=== PATIENT | female | born 2000 | race Caucasian/White ===

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

== ENCOUNTER 2020-02-20 18:49 | Emergency (ER) | payer BC ==
--- OUTSIDE RECORDS SUMMARY | 2020-02-20 18:51 | XMS REPORT ---
:2000 Author Organization [facility] t Address [address] [place] [address] Care Team Providers Name Role Phone LUZ LESLIE M.D. Unavailable Unavailable BARI ANGULO M.D. Unavailable Unavailable Payers Payer Name Policy Type Policy Number Effective Date Expiration D ate Problems Condition Condition Condition Status Onset Resolution Last Treatin g Comments Name Details Category Date Date Treatment Clinician Date Headache Headache Problem Active 2015-10 00:00: 00 History of History of Problem Resolve Heart Heart d disease disease Acute pain Acute pain Problem Active of right of right knee knee Patellar Patellar Problem Active tendinitis tendinitis of right of right knee knee Complex Complex Problem Active tear of tear of medial medial meniscus of meniscus of right knee right knee as current as current injury, injury, subsequent subsequent encounter encounter Acute upper Acute Upper Problem Active respiratory Respiratory infection Infection Eruption Eruption Problem Active Epistaxis Epistaxis Problem Active Contusion Contusion Problem Active of forearm of Forearm Allergies, Adverse Reactions, Alerts This patient has no known allergies or adverse reactions. Medications Ordered Filled Start Stop Current Ordering Indication Dosage Frequency Signature Comments Components Medication Medication Date Date Medication? Clinician (SIG) Name Name Meloxicam Meloxicam 2018-0 Yes BARI QD TAKE 1 15 MG Oral 15 MG Oral 3-14 ADELE TABLET Tablet Tablet 00:00: M.D. DAILY WITH 00 FOOD. Accutane 40 Accutane 40 Yes MG CAPS MG CAPS Accutane 40 Accutane 40 No Accutane mg capsule mg capsule 40 mg Take by Take by capsule oral route. oral route. Take by oral route. Vital Signs Vital Name Observation Time Observation Value Comments BP Diastolic 2018-12-22 00:00:00 66 mm[Hg] Height 2018-12-22 00:00:00 63 [in_i] BP Systolic 2018-12-22 00:00:00 107 mm[Hg] Body Weight 2018-12-22 00:00:00 1744 [oz_av] Procedures and Interventions Procedure Date / Time Performed Performing Clinici an MR Knee wo contrast [id number] 2019-01-15 00:00:00 Encounters Start End Encounter Admission Attending Care Care Encounter Date/Time Date/Time Type Type Clinicians Facility Department ID 2019-01-15 2019-01-15 Appointment ISABEL LESLIE [facility] [id number] 09:15:00 09:15:00 ; LUZ LESLIE, Orthopedic Fausto ESCOBAR. Surgery - [facility] 1 2018-12-24 2018-12-24 Appointment ISABEL ANGULO Orthopedics 5 [id number] 10:45:00 10:45:00 ; BARI ANGULO M.D. at [facility]ryl CANDELARIA M.D. 2018-12-22 2018-12-22 [facility] [place] - [id number] 00:00:00 00:00:00 Dorita [employer]RA[employer]: [address] - [address], [facility], [facility] [place] [address], Ph. Results Test Description Test Time Test Comments Text Results Atomic Results Result Comments [U] XRAY KNEE 4 OR MORE VWS 2018-12-24 10:28:00 Images acquired, not reported on RIGHT [id number] this accession number.
--- NOTE | 2020-02-20 19:49 | RAD REPORT ---
EXAM DESCRIPTION: CT - Head Brain Wo Cont - 02/20/2020 7:43 pm CLINICAL HISTORY: TRAUMA Headache, drowsiness, trauma COMPARISON: No comparisons TECHNIQUE: All CT scans are performed using dose optimization technique as appropriate and may inclu de automated exposure control or mA/KV adjustment according to patient size. FINDINGS: No intracranial hemorrhage, hydrocephalus or extra-axial fluid collection.No areas of brai n edema or evidence of midline shift. The paranasal sinuses and mastoids are clear. The calvarium is intact. IMPRESSION: No acute intracranial abnormality.
--- NOTE | 2020-02-20 20:55 | ER ---
Nurse's Notes [facility] Name: Cuca Santiago Age: 19 yrs Sex: Female : 2000 Arrival Date: 02/20/2020 Time: 18:58 Bed 13 Private MD: Diagnosis: Contusion of unspecified part of head Presentation: 02/19 19:00 Chief complaint: Patient states: Sitting on a swing in her room. Swing fell out of the 1 ceiling, and large wooden bar hit top of head. Denies LOC, but states she was very stunned. Tylenol 500 mg given en route. No N/V. Coronavirus screen: Proceed with normal triage. Patient denies a cough. Patient denies shortness of breath or difficulty breathing. Patient denies measured and/or subjective temperature greater than 100.4F prior to today's visit. Patient denies travel on a cruise ship or to a country the [facility] currently lists as an affected area. Patient denies contact with known and/or suspected case of COVID-19. Ebola Screen: Patient denies travel to an Ebola-affected area in the 21 days before illness onset. Initial Sepsis Screen: Does the patient meet any 2 criteria? No. Patient's initial sepsis screen is negative. Does the patient have a suspected source of infection? No. Patient's initial sepsis screen is negative. Risk Assessment: Do you want to hurt yourself or someone else? Patient reports no desire to harm self or others. Onset of symptoms was February 20, 2020. 19:00 Method Of Arrival: Wheelchair ll1 19:00 Acuity: BROOKE 3 ll1 Triage Assessment: 19:33 General: Appears in no apparent distress. comfortable, Behavior is calm, cooperative, vc appropriate for age. Pain: Complains of pain in right side of the back of head and left side of the back of head Pain currently is 6 out of 10 on a pain scale. 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 - Social history:: Smoking status: Patient denies any tobacco usage or history of. Patient/guardian denies using alcohol, street drugs, tobacco products. Screenin:33 Abuse screen: Denies threats or abuse. Nutritional screening: No deficits noted. vc Tuberculosis screening: No symptoms or risk factors identified. Fall Risk None identified. Assessment: 19:42 General: Appears in no apparent distress. comfortable, Behavior is calm, cooperative, vc appropriate for age. Pain: Complains of pain in right side of the back of head and left side of the back of head Pain currently is 6 out of 10 on a pain scale. Neuro: Level of Consciousness is awake, alert, obeys commands, Oriented to person, place, time, situation. Cardiovascular: Capillary refill < 3 seconds Patient's skin is warm and dry. Respiratory: Airway is patent Respiratory effort is even, unlabored, Respiratory pattern is regular, symmetrical. GI: No signs and/or symptoms were reported involving the gastrointestinal system. : No signs and/or symptoms were reported regarding the genitourinary system. EENT: Reports pain in right side of the back of head and left side of the back of head. Derm: Skin temperature is warm. 20:47 Reassessment: Patient appears in no apparent distress at this time. Patient and/or vc family updated on plan of care and expected duration. Pain level reassessed. Patient is alert, oriented x 3, equal unlabored respirations, skin warm/dry/pink. 21:00 Reassessment: Patient appears in no apparent distress at this time. Patient and/or vc family updated on plan of care and expected duration. Pain level reassessed. Patient is alert, oriented x 3, equal unlabored respirations, skin warm/dry/pink. Patient states symptoms have improved. Vital Signs: 19:00 BP 116 / 73; Pulse 88; Resp 16; Temp 98.3; Pulse Ox 100% ; Pain 6/10; ll1 19:30 BP 110 / 58; Pulse 70; Resp 16; Pulse Ox 99% ; vc 20:00 BP 109 / 64; Pulse 70; Resp 16; Pulse Ox 99% on R/A; vc 20:30 BP 109 / 66; Pulse 72; Pulse Ox 97% on R/A; vc [place] Coma Score: 19:14 Eye Response: spontaneous(4). Verbal Response: oriented(5). Motor Response: obeys mh7 commands(6). Total: 15. 20:48 Eye Response: spontaneous(4). Verbal Response: oriented(5). Motor Response: obeys [facility] commands(6). Total: 15. ED Course: 18:58 Patient arrived in ED. am2 19:02 Triage completed. ll1 19:02 Arm band placed on Patient placed in an exam room, on a stretcher. ll1 19:03 Cordell Arevalo MD is Attending Physician. 7 19:28 Stacey Sterling RN is Primary Nurse. vc 19:34 Patient has correct armband on for positive identification. Bed in low position. Call vc light in reach. Pulse ox on. NIBP on. 19:41 No provider procedures requiring assistance completed. vc 19:43 CT completed. Patient tolerated procedure well. Patient moved back from CT. mw3 19:44 CT Head Brain wo Cont In Process Unspecified. EDMS 20:48 Warm blanket given. vc 21:30 Patient did not have IV access during this emergency room visit. vc Administered Medications: No medications were administered Outcome: 20:54 Discharge ordered by . [facility] 21:30 Discharged to home ambulatory. vc 21:30 Condition: good 21:30 Discharge instructions given to patient, Instructed on discharge instructions, follow up and referral plans. Demonstrated understanding of instructions, follow-up care. 21:35 Patient left the ED. lp1 Signatures: Dispatcher [employer] EDMS Araceli Mello, RN RN 1 Nitza Reid am2 Kizzy Palencia mw3 Stacey Sterling RN RN vc Viktoriya Davidson RN RN 1 Cordell Arevalo MD MD [facility]
--- NOTE | 2020-02-20 20:55 | EDPHYS ---
Physician Documentation [facility] Name: Cuca Santiago Age: 19 yrs Sex: Female : 2000 Arrival Date: 02/20/2020 Time: 18:58 Bed 13 Private MD: ED Physician Cordell Arevalo HPI: 02/19 19:14 This 19 yrs old Female presents to ER via Wheelchair with complaints of Head mh7 Injury. 19:14 The patient or guardian reports injury, pain, tenderness. The complaints affect the mh7 left side of the back of head and right side of the back of head. Context of injury: The problem was sustained at home, resulted from a fall, height greater than five feet, from a seated position, Patient states that she was laying on a hammock that was anchored to her ceiling when it gave out causing her to fall approximately 5-6 feet onto a wooden floor. She hit her head on the floor. She is unsure if she had LOC at the time. She has pain to her head but denies any other injuries or pain.. Onset: The symptoms/episode began/occurred 3 hour(s) ago. Associated signs and symptoms: Loss of consciousness: This patient experience a loss of consciousness, the patient was "dazed", She is unsure if she had LOC, Pertinent negatives: patient denies any alcohol consumption, biting tongue, double vision, incontinence, nausea, neck pain, seizure, shortness of breath, tinnitus, vomiting, weakness in extremities, generalized weakness. Severity of symptoms: At their worst the symptoms were moderate, 3 hour(s) ago, in the emergency department the symptoms have improved, moderately. The patient has not experienced similar symptoms in the past. 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 - Social history:: Smoking status: Patient denies any tobacco usage or history of. Patient/guardian denies using alcohol, street drugs, tobacco products. ROS: 19:14 Constitutional: Negative for fever, chills, and weight loss, Eyes: Negative for injury, mh7 pain, redness, and discharge, ENT: Negative for injury, pain, and discharge, Neck: Negative for injury, pain, and swelling, Cardiovascular: Negative for chest pain, palpitations, and edema, Respiratory: Negative for shortness of breath, cough, wheezing, and pleuritic chest pain, Abdomen/GI: Negative for abdominal pain, nausea, vomiting, diarrhea, and constipation, Back: Negative for injury and pain, : Negative for injury, bleeding, discharge, and swelling, MS/Extremity: Negative for injury and deformity, Skin: Negative for injury, rash, and discoloration, Psych: Negative for depression, anxiety, suicide ideation, homicidal ideation, and hallucinations, Allergy/Immunology: Negative for hives, rash, and allergies, Endocrine: Negative for neck swelling, polydipsia, polyuria, polyphagia, and marked weight changes, Hematologic/Lymphatic: Negative for swollen nodes, abnormal bleeding, and unusual bruising. Exam: 19:14 Constitutional: This is a well developed, well nourished patient who is awake, alert, mh7 and in no acute distress. 19:14 Eyes: Pupils equal round and reactive to light, extra-ocular motions intact. Lids and lashes normal. Conjunctiva and sclera are non-icteric and not injected. Cornea within normal limits. Periorbital areas with no swelling, redness, or edema. ENT: Nares patent. No nasal discharge, no septal abnormalities noted. Tympanic membranes are normal and external auditory canals are clear. Oropharynx with no redness, swelling, or masses, exudates, or evidence of obstruction, uvula midline. Mucous membranes moist. Neck: Trachea midline, no thyromegaly or masses palpated, and no cervical lymphadenopathy. Supple, full range of motion without nuchal rigidity, or vertebral point tenderness. No Meningismus. Chest/axilla: Normal chest wall appearance and motion. Nontender with no deformity. No lesions are appreciated. Cardiovascular: Regular rate and rhythm with a normal S1 and S2. No gallops, murmurs, or rubs. Normal PMI, no JVD. No pulse deficits. Respiratory: Lungs have equal breath sounds bilaterally, clear to auscultation and percussion. No rales, rhonchi or wheezes noted. No increased work of breathing, no retractions or nasal flaring. Abdomen/GI: Soft, non-tender, with normal bowel sounds. No distension or tympany. No guarding or rebound. No evidence of tenderness throughout. Back: No spinal tenderness. No costovertebral tenderness. Full range of motion. Skin: Warm, dry with normal turgor. Normal color with no rashes, no lesions, and no evidence of cellulitis. MS/ Extremity: Pulses equal, no cyanosis. Neurovascular intact. Full, normal range of motion. Neuro: Awake and alert, GCS 15, oriented to person, place, time, and situation. Cranial nerves II-XII grossly intact. Motor strength 5/5 in all extremities. Sensory grossly intact. Cerebellar exam normal. Normal gait. 19:14 Head/face: Exam is negative for abrasion(s), maynard signs, deformity, ecchymosis, erythema, laceration(s), raccoon eyes, rash, Noted is contusion, that is superficial, of the right side of the back of head and left side of the back of head, swelling, that is mild, of the right side of the back of head and left side of the back of head, tenderness, that is moderate, of the right side of the back of head and left side of the back of head. Vital Signs: 19:00 BP 116 / 73; Pulse 88; Resp 16; Temp 98.3; Pulse Ox 100% ; Pain 6/10; ll1 19:30 BP 110 / 58; Pulse 70; Resp 16; Pulse Ox 99% ; vc 20:00 BP 109 / 64; Pulse 70; Resp 16; Pulse Ox 99% on R/A; vc 20:30 BP 109 / 66; Pulse 72; Pulse Ox 97% on R/A; vc [place] Coma Score: 19:14 Eye Response: spontaneous(4). Verbal Response: oriented(5). Motor Response: obeys mh7 commands(6). Total: 15. 20:48 Eye Response: spontaneous(4). Verbal Response: oriented(5). Motor Response: obeys mh7 commands(6). Total: 15. MDM: 19:08 Patient medically screened. traci 20:48 Differential diagnosis: Contusion of head, Hematoma on head, Intracranial bleed- mh7 subdural, epidural, intracerebral, Concussion cerebral contusion. Data reviewed: vital signs, nurses notes, radiologic studies, CT scan. Counseling: I had a detailed discussion with the patient and/or guardian regarding: the historical points, exam findings, and any diagnostic results supporting the discharge/admit diagnosis, radiology results, the need for outpatient follow up. ED course: Feels better, NAD, VSS, no focal neurological deficits. Awake, alert, and oriented x 3. Ambulating without difficulty. Discussed all test results and findings with the patient and answered all of her questions. She will follow up with her doctor. Explained that she needs to return to the ED if worsening of symptoms.. 02/20 00:45 Data interpreted: Pulse oximetry: on room air is 97 %. Interpretation: normal. 7 02/19 19:14 Order name: CT Head Brain wo Cont [facility] Administered Medications: No medications were administered Disposition: 02/20/20 20:54 Discharged to Home. Impression: Contusion of unspecified part of head. - Condition is Stable. - Discharge Instructions: Head Injury, Adult. - Medication Reconciliation Form, Thank You Letter, Antibiotic Education, Prescription Opioid Use form. - Follow up: Private Physician; When: 1 - 2 days; Reason: Worsening of condition, Re-evaluation by your physician. - Problem is new. - Symptoms have improved. Signatures: Dispatcher [employer] EDMS Hema Casiano MD MD cha Pena, Laura, RN RN lp1 Stacey Sterling RN RN vc Lewis, Lynsay, RN RN ll1 Cordell Arevalo MD MD mh7 Corrections: (The following items were deleted from the chart) 02/19 21:35 20:54 02/20/2020 20:54 Discharged to Home. Impression: Contusion of unspecified part of lp1 head. Condition is Stable. Forms are Medication Reconciliation Form, Thank You Letter, Antibiotic Education, Prescription Opioid Use. Follow up: Private Physician; When: 1 - 2 days; Reason: Worsening of condition, Re-evaluation by your physician. Problem is new. Symptoms have improved. [facility]
[2020-02-20 21:45] VITALS: TEMP 98.3
[2020-02-20 21:48] VITALS: BP 109/66; O2SAT 97
== END 2020-02-20 21:35 | disposition home or self-care (01) ==
LOC: ER 18:49
DX: S00.93XA Contusion of unspecified part of head, initial encounter (principal); W22.8XXA Striking against or struck by other objects, initial encounter; Y93.89 Activity, other specified; Y92.013 Bedroom of single-family (private) house as the place of occurrence of the external cause
CPT/HCPCS: 70450; 99284

== ENCOUNTER 2021-06-15 10:13 | Emergency (ER) | payer BC ==
--- OUTSIDE RECORDS SUMMARY | 2021-06-15 10:16 | XMS REPORT | Continuity of Care Document ---
:2000 Author Organization [facility] t Address [address] [place] [address] Care Team Providers Name Role Phone LESLIE Attending Clinician Unavailable ADELE Attending Clinician Unavailable Problems Condition Condition Condition Status Onset Resolution Last Treating Co mments Source Name Details Category Date Date Treatment Clinician Date History of History of Problem Resolve Univers Heart Heart d ity of disease disease [place] [facility] Acute pain Acute pain Problem Active U nivers of right of right ity of knee knee [place] [facility] Patellar Patellar Problem Active Unive rs tendinitis tendinitis it y of of right of right [place] knee knee Physici ans Complex Complex Problem Active Univers tear of tear of ity of medial medial [place] meniscus meniscus Physic i of right of right ans knee as knee as current current injury, injury, subsequent subsequent encounter encounter Right hip Right hip Problem Active Uni vers pain pain ity of [place] Phys[facility] ans Right Right Problem Active Univers snapping snapping ity of hip hip [place] [facility] Labral Labral Problem Active Univers tear of tear of [place] of [place] joint joint [facility] ans Allergies, Adverse Reactions, Alerts This patient has no known allergies or adverse reactions. Social History Smoking Status Start Date Stop Date Source Never smoked tobacco (finding) U [facility] Physicians Medications Ordered Filled Start Stop Current Ordering Indication Dosage Frequency Signature Comments Components Source Medication Medication Date Date Medication? Clinician (SIG) Name Name Meloxicam Meloxicam 2019-0 Yes BARI QD TAKE 1 Univers 15 MG Oral 15 MG Oral 3-14 ADELE TABLET ity of Tablet Tablet 00:00: M.D. DAILY WITH Jason as 00 FOOD. Physici ans Accutane 40 Accutane 40 Yes U nivers MG CAPS MG CAPS ity of [place] Physici ans Procedures Procedure Date / Time Performed Performing Clinician Sourc e MR Hip w contrast 2020-03-31 00:00:00 [facility] [id number] Physicians XRAY Hip arthrogram 2020-03-31 00:00:00 Univers ty [facility] Unilateral (Dx) [id number] Physicians MR Knee wo contrast 2019-01-15 00:00:00 [facility] [id number] Physicians Encounters Start End Encounter Admission Attending Care Care Encounter Source Date/Time Date/Time Type Type Clinicians Facility Department ID 2020-03-31 2020-03-31 ISABEL Blanc [facility] [id number] Univers 10:15:00 10:15:00 t; LUZ LESLIE, - [facility] of [place] Kate ESCOBAR Land [address] [place] [address] Mary Kate Physici ans 2019-01-15 2019-01-15 ISABEL Blanc [facility] [id number] Univers 09:15:00 09:15:00 t; LUZ LESLIE, Orthopedic i ty zhao ESCOBAR M.D. Surgery - [place] Mary Kate Philipp Physici Trace 1 ans 2018-12-24 2018-12-24 ISABEL Colon [facility] [id number] Univers 10:45:00 10:45:00 t; Mary Kate [facility]ARIA at [facility] ans Results Test Description Test Time Test Comments Results Result Sourc e Comments [U] XRAY KNEE 4 2018-12-24 Images Universit y of OR MORE VWS RIGHT 10:28:00 regina, not Abigail miguel [id number] reported on Physicians this accession number.
[2021-06-15 10:42] LABS: Urine Blood 3+ (Negative); Urine Glucose Negative (Negative); Urine Protein Negative (Negative); Urine Specific Gravity 1.025 (1.005-1.030)
[2021-06-15 11:44] LABS: Absolute Lymphocytes (CBC) 1.8 K/uL (0.7-4.9); Basophils % 0.5 % (0-1.3); Hematocrit 39.6 % (36.0-45.0); Lymphocytes % 26.2 % (15.3-44.8); MPV 7.9 fL (7.6-11.3); RBC Red Blood Cell Count 4.58 M/uL (3.86-4.86)
--- NOTE | 2021-06-15 11:51 | RAD REPORT ---
EXAM DESCRIPTION: US - Transvaginal Study Probe - 06/15/2021 11:24 am CLINICAL HISTORY: VAGINAL BLEEDING Pelvic pain. COMPARISON: No comparisons FINDINGS: The uterus is normal in size, shape and echotexture. The uterus measures 6.2 x 3.7 x 2.7 c m. The endometrial stripe measures 7 mm, normal. Both ovaries are normal in size, shape and echotexture. The right ovary measures 3.7 x 2.9 x 2.6 cm. The left ovary measures 2.3 x 2.0 x 1.4 cm. 28 mm right ovarian follicle noted. No adnexal masses. Normal Doppler blood flow was demonstrated to both ovaries. No significant pelvic ascites. IMPRESSION: No pathologic abnormality is observed.
--- NOTE | 2021-06-15 12:05 | EDPHYS ---
Physician Documentation [facility] Name: Cuca Santiago Age: 20 yrs Sex: Female : 2000 Arrival Date: 06/15/2021 Time: 10:16 Bed Waiting Private MD: ED Physician Hanane cShultz HPI: 06/15 16:56 This 20 yrs old Female presents to ER via Ambulatory with complaints of kb Vaginal Bleeding. 16:56 The patient presents with vaginal bleeding that is moderate. Onset: The kb symptoms/episode began/occurred 2 week(s) ago. Modifying factors: The symptoms are alleviated by nothing, the symptoms are aggravated by nothing. Associated signs and symptoms: Pertinent positives: vaginal bleeding, Pertinent negatives: constipation, cramping, diarrhea, dyspareunia, dysuria, fever, hematuria, nausea, urinary frequency, vaginal discharge, vomiting. Severity of symptoms: At their worst the symptoms were mild, moderate, in the emergency department the symptoms are unchanged. The patient has not experienced similar symptoms in the past. The patient has not recently seen a physician. Pt reports vaginal bleeding since middle of May. States she had an IUD that was removed in March and had a depo shot in February. States the shot made her feel "weird" so she didn't get the next one that was scheduled for May. . Historical: - Allergies: 10:19 No Known Allergies; aa5 - PMHx: 10:19 bicuspid aortic valve; Heart Murmur; aa5 - Immunization history:: Client reports having NOT received the Covid vaccine. - Social history:: Smoking status: Patient denies any tobacco usage or history of. ROS: 16:56 Constitutional: Negative for fever, chills, and weight loss. kb 16:56 : Positive for vaginal bleeding. 16:56 All other systems are negative. Exam: 16:56 Constitutional: This is a well developed, well nourished patient who is awake, alert, kb and in no acute distress. Head/Face: Normocephalic, atraumatic. ENT: Moist Mucous membranes Respiratory: Respirations even and unlabored. No increased work of breathing, no retractions or nasal flaring. Abdomen/GI: Soft, non-tender. No distention Skin: Warm, dry with normal turgor. Normal color. MS/ Extremity: Pulses equal, no cyanosis. Neurovascular intact. Full, normal range of motion. Neuro: Awake and alert, GCS 15, oriented to person, place, time, and situation. Moves all extremities. Normal gait. Psych: Awake, alert, with orientation to person, place and time. Behavior, mood, and affect are within normal limits. Vital Signs: 10:20 BP 130 / 69; Pulse 82; Resp 16 S; Temp 98.5(O); Pulse Ox 100% on R/A; Weight 49.9 kg aa5 (R); Height 5 ft. 4 in. (162.56 cm) (R); 10:20 Body Mass Index 18.88 (49.90 kg, 162.56 cm) aa5 MDM: 10:16 Patient medically screened. kb 16:56 Data reviewed: vital signs, nurses notes. Data interpreted: Pulse oximetry: on room air kb is 100 %. Interpretation: normal. Counseling: I had a detailed discussion with the patient and/or guardian regarding: the historical points, exam findings, and any diagnostic results supporting the discharge/admit diagnosis, lab results, radiology results, the need for outpatient follow up, an OB/Gyne specialist, to return to the emergency department if symptoms worsen or persist or if there are any questions or concerns that arise at home. 06/15 10:26 Order name: CBC with Diff; Complete Time: 11:50 kb 06/15 10:41 Order name: Urine Dipstick-Ancillary; Complete Time: 10:54 EDMS 06/15 10:26 Order name: Urine Dipstick-Ancillary (obtain specimen); Complete Time: 10:41 kb 06/15 10:26 Order name: US Transvaginal Study (Probe); Complete Time: 12:02 kb Administered Medications: No medications were administered Disposition Summary: 06/15/21 12:04 Discharge Ordered Location: Home kb Condition: Stable kb Diagnosis - Abnormal uterine and vaginal bleeding, unspecified kb Followup: kb - With: Emergency Department - When: As needed - Reason: Worsening of condition Followup: kb - With: Private Physician - When: 2 - 3 days - Reason: Recheck today's complaints, Continuance of care, Re-evaluation by your physician Discharge Instructions: - Discharge Summary Sheet kb - Abnormal Uterine Bleeding, [id number] kb Forms: - Medication Reconciliation Form kb - Thank You Letter kb - Antibiotic Education kb - Prescription Opioid Use kb Signatures: Dispatcher [employer] Stacey Lyle, DOMAIN ARCHITECT-C DOMAIN ARCHITECT-Dinob Sarah Hitchcock, RN RN aa5
--- NOTE | 2021-06-15 12:05 | ER ---
Nurse's Notes [facility] Name: Cuca Santiago Age: 20 yrs Sex: Female : 2000 Arrival Date: 06/15/2021 Time: 10:16 Bed Waiting Private MD: Diagnosis: Abnormal uterine and vaginal bleeding, unspecified Presentation: 06/15 10:18 Chief complaint: Patient states: vaginal bleeding that began "in the middle of may aa5 on and off but the last 2 days has been worse". Pt reports she got IUD out back in March. Coronavirus screen: At this time, the client does not indicate any symptoms associated with coronavirus-19. Ebola Screen: Patient negative for fever greater than or equal to 101.5 degrees Fahrenheit, and additional compatible Ebola Virus Disease symptoms. Initial Sepsis Screen: Does the patient meet any 2 criteria? No. Patient's initial sepsis screen is negative. Does the patient have a suspected source of infection? No. Patient's initial sepsis screen is negative. Risk Assessment: Do you want to hurt yourself or someone else? Patient reports no desire to harm self or others. Onset of symptoms was 2020. 10:18 Method Of Arrival: Ambulatory aa5 10:18 Acuity: BROOKE 3 aa5 Historical: - Allergies: 10:19 No Known Allergies; aa5 - PMHx: 10:19 bicuspid aortic valve; Heart Murmur; aa5 - Immunization history:: Client reports having NOT received the Covid vaccine. - Social history:: Smoking status: Patient denies any tobacco usage or history of. Assessment: 10:38 Reassessment: Pt at . aa5 Vital Signs: 10:20 BP 130 / 69; Pulse 82; Resp 16 S; Temp 98.5(O); Pulse Ox 100% on R/A; Weight 49.9 kg aa5 (R); Height 5 ft. 4 in. (162.56 cm) (R); 10:20 Body Mass Index 18.88 (49.90 kg, 162.56 cm) aa5 ED Course: 10:16 Patient arrived in ED. mr 10:16 St[facility] Murphy [facility]-C [facility] kb 10:16 Hanane Scuhltz MD is Attending Physician. kb 10:18 Arm band placed on. aa5 10:19 Triage completed. aa5 11:15 Initial lab(s) drawn, by ED staff, sent to lab. iw 11:24 US Transvaginal Study (Probe) In Process Unspecified. EDMS 12:30 No provider procedures requiring assistance completed. Patient did not have IV access aa5 during this emergency room visit. Administered Medications: No medications were administered Outcome: 12:04 Discharge ordered by . kb 12:30 Patient left the ED. 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 aa5 13:49 13:26 Patient left the ED. aa5
[2021-06-15 13:30] VITALS: BP 130/69; TEMP 98.5; O2SAT 100
== END 2021-06-15 13:26 | disposition home or self-care (01) ==
LOC: ER 10:13
DX: N93.9 Abnormal uterine and vaginal bleeding, unspecified (principal)
CPT/HCPCS: 36415; 76830; 81003; 85025; 99283

== ENCOUNTER 2021-10-01 10:40 | Emergency (ER) | payer BC ==
--- OUTSIDE RECORDS SUMMARY | 2021-10-01 10:43 | XMS REPORT | Continuity of Care Document ---
:2000 Author Organization [facility] [place] [facility] t Address [facility] [address] [place] [address] Care Team Providers Name Role Phone Unknown Primary Care Physician Unavailable Anuj SCRUGGS Attending Clinician Lab, Fam Pob I Attending Clinician Unavailable Sierra SERRANO Attending Clinician SIERRA Attending Clinician Unavailable Doctor Unassigned, Name Attending Clinician Unavailable ANUJ Attending Clinician Unavailable ADELE Attending Clinician Unavailable Payers Payer Name Policy Type Policy Number Effective Date Expiration Date S eren BCBSTX PPO [id number] 2019 00:00:00 Problems Condition Condition Condition Status Onset Resolution Last Treating Co mments Source Name Details Category Date Date Treatment Clinician Date Left wrist Left wrist Disease Active 2020-10 U T pain pain 10-13 Health 00:00: 00 Contusion Contusion Disease Active 2020-10 [facility] of left of left 10-13 Health forearm forearm 00:00: 00 History of History of Problem Resolve Univers Heart Heart d ity of disease disease [place] [facility] Acute pain Acute pain Problem Active U nivers of right of right ity of knee knee [place] [facility] Patellar Patellar Problem Active Unive rs tendinitis tendinitis it y of of right of right [place] knee knee Physici ans Complex Complex Problem [...] joint Physici ans Allergies, Adverse Reactions, Alerts Allergy Allergy Status Severity Reaction(s) Onset Inactive Treating Comm ents Source Name Type Date Date Clinician NO KNOWN Drug Active [facility] ALLERGIE Class ity of S [facility] Social History Social Habit Start Date Stop Date Quantity Comments Source Exposure to SARS-CoV-[address] [facility] (event) Sex Assigned At [address] [facility] 00:00:00 00:00:00 Smoking Status Start Date Stop Date Source Tobacco smoking consumption [facility] Never smoked tobacco (finding) U [facility] Physicians Medications Ordered Filled Start Stop Current Ordering Indication Dosage Frequency Signature Comments Components Source Medication Medication Date Date Medication? Clinician (SIG) Name Name meloxicam 2020-10 Yes [id number] TAKE 1 UT (Mobic) 10-14 [id number] TABLET(15 He alth MG tablet 00:00: MG) BY 00 MOUTH 1 TIME EACH DAY meloxicam 2020-10- No [id number] 15mg QD Take 1 UT (Mobic) 10-13 [id number] tablet (15 Health MG tablet 00:00: 00:00 mg total) 00 :00 by mouth 1 (one) time each day. meloxicam 2020-10- No [id number] 15mg QD Take 1 UT (Mobic) 10-13 [id number] tablet (15 Health MG tablet 00:00: 00:00 mg total) 00 :00 by mouth 1 (one) time each day. Meloxicam Meloxicam Yes BARI QD TAKE 1 Univers 15 MG Oral 15 MG Oral 3-14 ADELE TABLET ity of Tablet Tablet 00:00: M.D. DAILY WITH Jason as 00 FOOD. Physici ans Accutane 40 Accutane 40 Yes U nivers MG CAPS MG CAPS ity of [place] Physici ans Vital Signs Vital Name Observation Time Observation Value Comments Source Body height 2021 21:21:00 165.1 cm [facility] Body weight 2021 21:21:00 54.885 kg [facility] BMI 2021 21:21:00 20.14 kg/m2 [facility] Procedures Procedure Date / Time Performed Performing Clinician Fabiano e XR FOREARM 2 VIEWS 2021 21:30:29 Luz Leslie [facility] [place] LEFT MR Hip w contrast 2020-03-31 00:00:00 [facility] [id number] Physicians XRAY Hip arthrogram 2020-03-31 00:00:00 [facility] Unilateral (Dx) [id number] Physicians MR Knee wo contrast 2019-01-15 00:00:00 [facility] [id number] Physicians Encounters Start End Encounter Admission Attending Care Care Encounter Source Date/Time Date/Time Type Type Clinicians Facility Department ID 2021 Outpatient [facility] [id number] [facility] 16:05:34 Health 2021 2021 Office ISABEL Leslie ORTHO [id number] 15:43:34 16:47:37 Visit Luz SUGAR [id number] He alth [place] [id number] 2021 2021 Refill ISABEL Leslie ORTHO [id number] 00:00:00 00:00:00 Luz SUGAR [id number] He alth [place] [id number] 2020-09-23 2020-09-23 Laboratory Lab, Adc Fam Pob I [facility] [id number] Univers 08:47:02 09:07:02 Only Maria Esther [facility] [id number] ity [facility] [id number] Jason as Professio [id number] [address] Office [address] 2020-09-23 2020-09-23 Outpatient R SIERRA [facility] [id number] Univers 08:40:00 08:40:00 MARIA ESTHER ity of [facility] 2020-09-23 2020-09-23 Letter Doctor SHAW [id number] Univers 00:00:00 00:00:00 (Out) Unassigned, JATINDER [id number] ity of [place] [facility] [id number] [facility] [address] [place] 2020-03-31 2020-03-31 Appointmen ISABEL LESLIE [facility] [id number] [facility] 10:15:00 10:15:00 t; LESLIE, LUZ, - [place] [facility] of [place] [address] [place] Mary Kate Physici ans 2019-01-15 2019-01-15 Appointmen ISABEL LESLIE [facility] [id number] Univers 09:15:00 09:15:00 t; LUZ LESLIE, Orthopedic i ty of Mary Kate ESCOBAR Surgery - Mariana Hartmann Philipp Physici Trace 1 ans 2018-12-24 2018-12-24 Appointmen ISABEL ANGULO [facility] [id number] Univers 10:45:00 10:45:00 t; Mary Kate CANDELARIA at [facility] of ADELEMariana Physici M.D. ans Results Test Description Test Time Test Comments Results Result Sourc e Comments [U] XRAY KNEE 4 2018-12-24 Images Universit y of [place] MORE VWS RIGHT 10:28:00 [place] [id number] reported on Physicians this accession number.
--- NOTE | 2021-10-01 12:14 | RAD REPORT ---
EXAM DESCRIPTION: RAD - Chest Pa And Lat (2 Views) - 10/01/2021 12:08 pm CLINICAL HISTORY: COUGH COMPARISON: Chest Pa And Lat (2 Views) dated 12/19/2019; Chest Pa And Lat (2 Views) dated 10/28/2018; C hest Pa And Lat (2 Views) dated 07/07/2016 FINDINGS: Lines: None. Lungs: No evidence of edema or pneumonia. Pleural: No significant pleural effusions or pneumothorax. Cardiac: The heart size is within normal limits. Bones: No acute fractures. Other: IMPRESSION: No acute cardiopulmonary disease.
[2021-10-01 12:46] LABS: SARS-COV-2 RT PCR NEGATIVE (NEGATIVE)
--- NOTE | 2021-10-01 13:13 | ER ---
Nurse's Notes [facility] Name: Cuca Santiago Age: 21 yrs Sex: Female : 2000 Arrival Date: 10/01/2021 Time: 10:41 Bed 12 Private MD: Diagnosis: Acute upper respiratory infection, unspecified Presentation: 10/01 11:01 Chief complaint: Patient states: she believes she has bronchitis, as she gets it every ap3 year. Patient states the symptoms began Friday09/29/2021. Coronavirus screen: Client presents with at least one sign or symptom that may indicate coronavirus-19. Standard/surgical mask placed on the client. Provider contacted for isolation considerations. Ebola Screen: No symptoms or risks identified at this time. Initial Sepsis Screen: Does the patient meet any 2 criteria? No. Patient's initial sepsis screen is negative. Does the patient have a suspected source of infection? No. Patient's initial sepsis screen is negative. Risk Assessment: Do you want to hurt yourself or someone else? Patient reports no desire to harm self or others. Onset of symptoms was September 29, 2021. 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 - Social history:: Smoking status: Reported history of juuling and/or vaping. Screenin:04 Abuse screen: Denies threats or abuse. Nutritional screening: No deficits noted. ap3 Tuberculosis screening: No symptoms or risk factors identified. Fall Risk None identified. Assessment: 11:03 General: Appears in no apparent distress. Behavior is calm, cooperative, appropriate ap3 for age. Pain: Denies pain. Neuro: Level of Consciousness is awake, alert, obeys commands, Oriented to person, place, time, situation, Appropriate for age Moves all extremities. Gait is steady, Speech is normal. Cardiovascular: Capillary refill < 3 seconds Patient's skin is warm and dry. Respiratory: Reports cough that is dry, Airway is patent Respiratory effort is even, unlabored, Respiratory pattern is regular, symmetrical, Breath sounds are clear bilaterally. the patient has mild shortness of breath. Vital Signs: 11:01 BP 118 / 87; Pulse 96; Resp 18; Temp 98.7(O); Pulse Ox 99% on R/A; Weight 49.9 kg; ap3 Height 5 ft. 5 in. (165.10 cm); 11:01 Body Mass Index 18.30 (49.90 kg, 165.10 cm) ap3 ED Course: 10:41 Patient arrived in ED. am2 11:01 Nitza Gandhi, RN is Primary Nurse. ap3 11:02 Triage completed. ap3 11:04 Hema Melo PA is PHCP. cp 11:04 Hema Casiano MD is Attending Physician. cp 11:05 Arm band placed on right wrist. ap3 11:05 Patient has correct armband on for positive identification. Call light in reach. Side ap3 rails up X 1. Adult w/ patient. Pulse ox on. NIBP on. Door closed. Noise minimized. 11:41 Strep Sent. mb7 12:07 XRAY Chest Pa And Lat (2 Views) In Process Unspecified. EDMS 12:12 Patient moved back from radiology. md1 13:23 No provider procedures requiring assistance completed. Patient did not have IV access ap3 during this emergency room visit. Administered Medications: No medications were administered Outcome: 13:12 Discharge ordered by MD. cp 13:23 Discharged to home ambulatory, with family. ap3 13:23 Condition: good 13:23 Discharge instructions given to patient, Instructed on discharge instructions, follow up and referral plans. medication usage, Demonstrated understanding of instructions, follow-up care, medications, Prescriptions given X 1. 13:23 Patient left the ED. ap3 Signatures: Dispatcher [employer] EDMS Hema Melo PA PA cp Moreno, Amanda am2 Nitza Gandhi, LUZ RN ap3 Kera Briones md1 Tara Hammonds mb7 Corrections: (The following items were deleted from the chart) 12:04 11:41 CORONAVIRUS+MR.LAB.BRZ drawn and sent. mb7 EDMS 12:05 11:41 Influenza Screen (A \T\ B)+BA.LAB.BRZ drawn and sent. mb7 EDMS
--- NOTE | 2021-10-01 13:13 | EDPHYS ---
Physician Documentation [facility] Name: Cuca Santiago Age: 21 yrs Sex: Female : 2000 Arrival Date: 10/01/2021 Time: 10:41 Bed 12 Private MD: ED Physician Hema Casiano HPI: 10/01 11:35 This 21 yrs old Female presents to ER via Ambulatory with complaints of Chest cp Congestion. 11:35 The patient or guardian reports cough, that is intermittent, with productive sputum. cp 11:35 Onset: The symptoms/episode began/occurred 2 day(s) ago. cp 11:35 Associated signs and symptoms: Pertinent positives: sore throat, Pertinent negatives: cp diarrhea, fever, vomiting. 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 - Social history:: Smoking status: Reported history of juuling and/or vaping. ROS: 11:40 Constitutional: Negative for body aches, chills, fever, poor PO intake. cp 11:40 Eyes: Negative for injury, pain, redness, and discharge. cp 11:40 ENT: Positive for sore throat, Negative for drainage from ear(s), ear pain, difficulty swallowing, difficulty handling secretions. 11:40 Cardiovascular: Negative for chest pain, palpitations. 11:40 Respiratory: Positive for cough, "sounds productive", Negative for shortness of breath, wheezing. 11:40 Abdomen/GI: Negative for abdominal pain, nausea, vomiting, and diarrhea. 11:40 Neuro: Negative for headache. 11:40 All other systems are negative. Exam: 11:45 Constitutional: The patient appears in no acute distress, alert, awake, comfortable, cp non-toxic, well developed, well nourished. 11:45 Head/Face: Normocephalic, atraumatic. cp 11:45 Eyes: Periorbital structures: appear normal, Conjunctiva: normal, no exudate, no injection, Lids and lashes: appear normal, bilaterally. 11:45 ENT: External ear(s): are unremarkable, Nose: is normal, Mouth: Lips: moist, Oral mucosa: moist, Posterior pharynx: Airway: no evidence of obstruction, patent, Tonsils: no enlargement, no erythema, no exudate, swelling, is not appreciated, erythema, that is mild, exudate, is not appreciated. 11:45 Neck: ROM/movement: is normal, is supple, no meningismus, no nuchal rigidity, Lymph nodes: no appreciated lymphadenopathy. 11:45 Chest/axilla: Inspection: normal. 11:45 Cardiovascular: Rate: normal. 11:45 Respiratory: the patient does not display signs of respiratory distress, Respirations: normal, no use of accessory muscles, no retractions, labored breathing, is not present, Breath sounds: are clear throughout, no decreased breath sounds, no stridor, no wheezing. 11:45 Abdomen/GI: Exam negative for discomfort, distension, guarding, Inspection: abdomen appears normal. Vital Signs: 11:01 BP 118 / 87; Pulse 96; Resp 18; Temp 98.7(O); Pulse Ox 99% on R/A; Weight 49.9 kg; ap3 Height 5 ft. 5 in. (165.10 cm); 11:01 Body Mass Index 18.30 (49.90 kg, 165.10 cm) ap3 MDM: 11:09 Patient medically screened. [facility] 13:00 Differential Diagnosis: Bronchitis Influenza Otitis Media Pneumonia. cp 13:11 Data reviewed: vital signs, nurses notes, lab test result(s). 10/01 11:24 Order name: XRAY Chest Pa And Lat (2 Views); Complete Time: 12:28 10/01 12:28 Interpretation: Report reviewed. 10/01 11:24 Order name: Strep; Complete Time: 12:28 10/01 12:28 Interpretation: Reviewed. 10/01 12:05 Order name: COVID-19/FLU A+B; Complete Time: 12:51 EDMS 10/01 12:52 Interpretation: Reviewed. 10/01 12:06 Order name: Throat Culture EDMS Administered Medications: No medications were administered Disposition Summary: 10/01/21 13:12 Discharge Ordered Location: Home cp Problem: new cp Symptoms: are unchanged cp Condition: Stable cp Diagnosis - Acute upper respiratory infection, unspecified cp Followup: cp - With: Private Physician - When: 2 - 3 days - Reason: Worsening of condition Discharge Instructions: - Discharge Summary Sheet cp - Upper Respiratory Infection, Adult cp - Viral Respiratory Infection cp Forms: - Medication Reconciliation Form cp - Thank You Letter cp - Antibiotic Education cp - Prescription Opioid Use cp Prescriptions: - Tessalon Perles 100 mg Oral Capsule - take 1 capsule by ORAL route every 8 hours As needed; 15 capsule; Refills: 0, cp Product Selection Permitted Addendum: 10/02/2021 18:46 Co-signature as Attending Physician, Hema Casiano MD I agree with the assessment and c regalado plan of care. Signatures: Dispatcher [employer] EDMS Hema Casiano MD MD cha Page, Corey, PA PA Nitza Gaytan RN RN ap3 Corrections: (The following items were deleted from the chart) 10/01 12:04 11:25 CORONAVIRUS+MR.LAB.BRZ ordered. EDMS EDMS 12:05 11:25 Influenza Screen (A \\T\\ B)+BA.LAB.BRZ ordered. EDMS EDMS
[2021-10-01 13:44] VITALS: BP 118/87; TEMP 98.7; O2SAT 99
== END 2021-10-01 13:23 | disposition home or self-care (01) ==
LOC: ER 10:40
DX: J06.9 Acute upper respiratory infection, unspecified (principal); Z20.822 Contact with and (suspected) exposure to COVID-19
CPT/HCPCS: 87070; 87081; 0240U; 71046; 99284

== ENCOUNTER 2021-11-30 21:04 | Emergency (ER) | payer BC, OTHER ==
--- OUTSIDE RECORDS SUMMARY | 2021-11-30 21:07 | XMS REPORT | Continuity of Care Document ---
:2000 Author Organization [facility] t Address [address] [place] [address] Care Team Providers Name Role Phone Unknown Primary Care Physician Unavailable Anuj SCRUGGS Attending Clinician Lab, Fam Pob I Attending Clinician Unavailable Sierra SERRANO Attending Clinician SIERRA Attending Clinician Unavailable Doctor Unassigned, Name Attending Clinician Unavailable ANUJ Attending Clinician Unavailable ADELE Attending Clinician Unavailable Payers Payer Name Policy Type Policy Number Effective Date Expiration Date S eren BCBSTX PPO [id number] 2019 00:00:00 Problems Condition Condition Condition Status [...] it y of of right of right [place] knee knee Physici ans Complex Complex Problem [...] Date Date Clinician NO KNOWN Drug Active [facility] ALLERGIE Class ity of S [facility] [place] Social History Social Habit Start Date Stop Date Quantity Comments Source Exposure to SARS-CoV-2 Not sure [facility] (event) Sex Assigned At 2000 2000 [facility] 00:00:00 00:00:00 Smoking Status Start Date Stop Date Source Tobacco smoking [facility] Never smoked tobacco (finding[facility] Physicians Medications Ordered Filled Start Stop Current Ordering Indication Dosage Frequency Signature Comments Components Source Medication Medication Date Date Medication? Clinician (SIG) Name Name meloxicam 2020-10 Yes [id number] TAKE 1 [facility] (Mobic) 10-14 197115 TABLET(15 He alth MG tablet 00:00: MG) BY 00 MOUTH 1 TIME EACH DAY meloxicam 2020-10- No [id number] 15mg QD Take 1 [facility] (Mobic) 10-13 [id number] tablet (15 Health MG tablet 00:00: 00:00 mg total) 00 :00 by mouth 1 (one) time each day. meloxicam 2020-10- No [id number] 15mg QD Take 1 [facility] (Mobic) 10-13 [id number] tablet (15 Health MG tablet 00:00: 00:00 mg total) 00 :00 by mouth 1 (one) time each day. Meloxicam Meloxicam Yes BARI QD TAKE 1 [facility] 15 MG Oral 15 MG Oral 3-14 AEDLE TABLET ity of Tablet Tablet 00:00: M.D. [...] FOREARM 2 VIEWS 2021 21:30:[address] [facility] LEFT MR Hip w contrast 2020-03-31 00:00:00 [facility] [id number] Physicians XRAY Hip arthrogram 2020-03-31 00:00:00 [facility] Unilateral (Dx) [id number] Physicians MR Knee wo contrast 2019-01-15 00:00:00 [facility] [id number] Physicians Encounters Start End Encounter Admission Attending Care Care Encounter Source Date/Time Date/Time Type Type Clinicians Facility Department ID 2021 Outpatient [facility] [id number] [place] 16:05:34 Health 2021 2021 Office ISABEL Leslie ORTHO [id number] [place] 15:43:34 16:47:37 Visit Luz SUGAR [id number] He alth [place] [id number] 2021 2021 Refill ISABEL Leslie ORTHO [id number] [place] 00:00:00 00:00:00 Luz SUGAR [id number] He alth [place] [id number] 1 2020-09-23 2020-09-23 Laboratory Lab, Adc Fam Pob I [facility] [id number] Univers 08:47:02 09:07:02 Only Sierra Maria Esther [facility] [id number] ity [facility] [id number] Jason as Professio [id number] [address] Office Building One 2020-09-23 2020-09-23 Outpatient R [facility] [id number] Univers 08:40:00 08:40:00 MARIA ESTHER ity of [facility] 2020-09-23 2020-09-23 Letter Doctor SHAW [id number] Univers 00:00:00 00:00:00 (Out) Unassigned, JATINDER [id number] [place] [facility] [id number] Jason as [id number] [facility] [address] [place] 2020-03-31 2020-03-31 Appointmen ISABEL LESLIE Orthopedics [id number] [facility] 10:15:00 10:15:00 t; LESLIE, LUZ, - [place] ity of Mary Kate ESCOBAR [place] Mary Kate Physici ans 2019-01-15 2019-01-15 Appointmen ISABEL LESLIE [facility] [id number] Univers 09:15:00 09:15:00 t; LUZ LESLIE, Orthopedic i ty of Mary Kate ESCOBAR Surgery - Mariana Hartmann Philipp [facility]ici Trace 1 ans 2018-12-24 2018-12-24 Appointmen ISABEL ANGULO Orthopedics [id number] Univers 10:45:00 10:45:00 t; Mary Kate CANDELARIA at [facility] ans Results Test Description Test Time Test Comments Results Result Sourc e Comments [U] XRAY KNEE 4 2018-12-24 Images Universit y of [place] MORE VWS RIGHT 10:28:00 [place] [id number] reported on Physicians this accession number.
[2021-11-30] MEDS ORDERED: NA CHLORIDE 0.9% 1,000 ML ONE (21:34)
[2021-11-30 21:40] LABS: Urine Blood 3+ (Negative); Urine Glucose Negative (Negative); Urine Protein 1+ (Negative); Urine Specific Gravity >=1.030 (1.005-1.030)
[2021-11-30 21:46] LABS: Absolute Lymphocytes (CBC) 2.9 K/uL (0.7-4.9); Lymphocytes % 32.4 % (15.3-44.8); MPV 7.6 fL (7.6-11.3)
[2021-11-30 21:46] LABS: Urine Specific Gravity/Preg >1.030 (1.005-1.030)
[2021-11-30 22:02] LABS: Urine Amorphous Sediment 2+ /HPF (NONE SEEN); Urine Bacteria >50 /HPF (<20); Urine Mucus 1+ /HPF (NONE SEEN)
[2021-11-30 22:03] LABS: ALT/SGPT 25 U/L (12-78); AST/SGOT 13 U/L (15-37); Albumin 3.9 g/dL (3.4-5.0); Alkaline Phosphatase 53 U/L (45-117); BUN Blood Urea Nitrogen 11 mg/dL (7-18); Bicarbonate 27 mmol/L (21-32); Bilirubin Direct 0.1 mg/dL (0-0.2); Bilirubin Total 0.3 mg/dL (0.2-1.0); Glucose Level 112 mg/dL (74-106); Lipase 140 U/L (73-393); Potassium 3.3 mmol/L (3.5-5.1); Protein, Total 7.4 g/dL (6.4-8.2); Sodium Level 140 mmol/L (136-145)
--- NOTE | 2021-11-30 22:56 | ER ---
Nurse's Notes [facility] Name: Cuca Santiago Age: 21 yrs Sex: Female : 2000 Arrival Date: 11/30/2021 Time: 21:10 Bed 11 Private MD: Diagnosis: UTI/ Urinary tract infection, site not specified Presentation: 11/30 21:16 Chief complaint: Patient states: C/O abdominal and back pain, states stomach is ll3 cramping, states was vomiting last night and this morning. Coronavirus screen: Vaccine status: Patient reports being unvaccinated. At this time, the client does not indicate any symptoms associated with coronavirus-19. Ebola Screen: No symptoms or risks identified at this time. Initial Sepsis Screen: Does the patient meet any 2 criteria? No. Patient's initial sepsis screen is negative. Does the patient have a suspected source of infection? No. Patient's initial sepsis screen is negative. Risk Assessment: Do you want to hurt yourself or someone else? Patient reports no desire to harm self or others. Onset of symptoms was November 29, 2021. 21:16 Method Of Arrival: Ambulatory ll3 21:16 Acuity: BROOKE 3 ll3 Triage Assessment: 21:19 General: Appears uncomfortable, Behavior is calm, cooperative. Pain: Complains of pain ll3 in right lower quadrant and left lower quadrant Pain radiates to left low back and right low back Pain currently is 4 out of 10 on a pain scale. Quality of pain is described as crampy, Pain began 1 day ago. Is intermittent. Neuro: Level of Consciousness is awake, alert, obeys commands, Oriented to person, place, time, situation. Cardiovascular: Patient's skin is warm and dry. Respiratory: Respiratory effort is even, unlabored, Respiratory pattern is regular, symmetrical. GI: Abdomen is flat, non-distended, Stools are reported to be constipated. Abd is soft X 4 quads Abdomen is tender to palpation in right lower quadrant and left lower quadrant. Derm: Skin is pink, warm \T\ dry. Musculoskeletal: Range of motion: intact in all extremities. 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 - Social history:: Smoking status: Reported history of juuling and/or vaping. Screenin:14 Abuse screen: Denies threats or abuse. Nutritional screening: No deficits noted. sf1 Tuberculosis screening: No symptoms or risk factors identified. Fall Risk None identified. Vital Signs: 21:16 BP 100 / 87; Pulse 88; Resp 16; Temp 97.9(TE); Pulse Ox 100% on R/A; Weight 49.9 kg ll3 (R); Height 5 ft. 4 in. (162.56 cm) (R); Pain 4/10; 21:16 Body Mass Index 18.88 (49.90 kg, 162.56 cm) ll3 ED Course: 21:10 Patient arrived in ED. ja2 21:10 Stacey Murphy FNP-C [facility]. kb 21:10 Kenn Avila MD is Attending Physician. kb 21:19 Triage completed. ll3 21:19 Arm band placed on. ll3 21:30 Dipika Rasheed, LUZ is Primary Nurse. sf1 21:34 Inserted saline lock: 20 gauge in left antecubital area, using aseptic technique. Blood sf1 collected. 21:35 CBC with Automated Diff Sent. sf1 21:35 Basic Metabolic Panel Sent. sf1 21:35 Urine Microscopic Only Sent. sf1 21:35 Basic Metabolic Panel Sent. sf1 21:35 CBC with Diff Sent. sf1 21:35 Hepatic Function Sent. sf1 21:35 Lipase Sent. sf1 22:21 CT Abd/Pelvis - IV Contrast Only In Process Unspecified. EDMS 22:48 Urine --Ancillary (enter results) Sent. sf1 23:14 Patient has correct armband on for positive identification. sf1 23:14 No provider procedures requiring assistance completed. intact, bleeding controlled, No sf1 redness/swelling at site. Pressure dressing applied. Administered Medications: 21:35 Drug: NS 0.9% 1000 ml Route: IV; Rate: 1000 ml; Site: left antecubital; sf1 23:02 Drug: Rocephin (cefTRIAXone) 1 grams Route: IV; Rate: calculated rate; Site: left sf1 antecubital; 23:03 Drug: Potassium Chloride 20 mEq Route: PO; sf1 Outcome: 22:56 Discharge ordered by MD. zhu 23:14 Discharged to home ambulatory. sf1 23:14 Condition: good 23:14 Discharge instructions given to patient, Instructed on discharge instructions, follow up and referral plans. Demonstrated understanding of instructions, follow-up care, medications, Prescriptions given X 1. 23:16 Patient left the ED. sf1 Signatures: Dispatcher [employer] EDStacey Espinosa, VOICE INSTRUCTOR-C VOICE INSTRUCTOR-[place] Lynsea, RN RN ll3 Dipika Rasheed RN RN sf1 Corrections: (The following items were deleted from the chart) 21:26 21:16 Acuity: BROOKE 4 ll3 ll3
--- NOTE | 2021-11-30 22:56 | EDPHYS ---
Physician Documentation [facility] Name: Cuca Santiago Age: 21 yrs Sex: Female : 2000 Arrival Date: 11/30/2021 Time: 21:10 Bed 11 Private MD: ED Physician Kenn Avila HPI: 11/30 22:55 This 21 yrs old Female presents to ER via Ambulatory with complaints of Back Pain, kb Abdominal Pain. 22:55 The patient presents with abdominal pain in the lower abdomen. Onset: The kb symptoms/episode began/occurred yesterday. The symptoms do not radiate. Associated signs and symptoms: Pertinent positives: nausea and vomiting, flank pain. The symptoms are described as crampy. Modifying factors: The symptoms are alleviated by nothing, the symptoms are aggravated by pressure. Severity of pain: At its worst the pain was mild in the emergency department the pain is unchanged. The patient has not experienced similar symptoms in the past. The patient has not recently seen a physician. Pt reports lower abd cramps and bilateral flank pain that started yesterday. . 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 - Social history:: Smoking status: Reported history of juuling and/or vaping. ROS: 22:54 Constitutional: Negative for fever, chills, and weight loss. kb 22:54 Abdomen/GI: Positive for abdominal pain, nausea and vomiting, Negative for diarrhea. 22:54 Back: Positive for flank pain, bilaterally. 22:54 All other systems are negative. Exam: 22:54 Constitutional: This is a well developed, well nourished patient who is awake, alert, kb and in no acute distress. Head/Face: Normocephalic, atraumatic. ENT: Moist Mucous membranes Cardiovascular: Regular rate and rhythm with a normal S1 and S2. No gallops, murmurs, or rubs. No pulse deficits. Respiratory: Respirations even and unlabored. No increased work of breathing. Talking in full sentences Skin: Warm, dry with normal turgor. Normal color. MS/ Extremity: Pulses equal, no cyanosis. Neurovascular intact. Full, normal range of motion. Neuro: Awake and alert, GCS 15, oriented to person, place, time, and situation. Moves all extremities. Normal gait. Psych: Awake, alert, with orientation to person, place and time. Behavior, mood, and affect are within normal limits. 22:54 Abdomen/GI: Inspection: abdomen appears normal, Bowel sounds: normal, Palpation: soft, in all quadrants, mild abdominal tenderness, in the right lower quadrant and left lower quadrant. Vital Signs: 21:16 BP 100 / 87; Pulse 88; Resp 16; Temp 97.9(TE); Pulse Ox 100% on R/A; Weight 49.9 kg ll3 (R); Height 5 ft. 4 in. (162.56 cm) (R); Pain 4/10; 21:16 Body Mass Index 18.88 (49.90 kg, 162.56 cm) ll3 MDM: 21:16 Patient medically screened. kb 22:55 Data reviewed: vital signs, nurses notes. Data interpreted: Pulse oximetry: on room air kb is 100 %. Interpretation: normal. Counseling: I had a detailed discussion with the patient and/or guardian regarding: the historical points, exam findings, and any diagnostic results supporting the discharge/admit diagnosis, lab results, the need for outpatient follow up, a family practitioner, to return to the emergency department if symptoms worsen or persist or if there are any questions or concerns that arise at home. 11/30 21:16 Order name: Basic Metabolic Panel 11/30 21:16 Order name: CBC with Diff 11/30 21:16 Order name: Hepatic Function; Complete Time: 22:07 kb 11/30 21:16 Order name: Lipase; Complete Time: 22:07 kb 11/30 21:17 Order name: Urine Microscopic Only; Complete Time: 22:07 kb 11/30 21:17 Order name: Basic Metabolic Panel; Complete Time: 22:07 EDMS 11/30 21:16 Order name: CT Abd/Pelvis - IV Contrast Only kb 11/30 21:17 Order name: CBC with Automated Diff; Complete Time: 21:48 EDMS 11/30 21:39 Order name: Urine Dipstick-Ancillary; Complete Time: 21:48 EDMS 11/30 21:41 Order name: Urine --Ancillary (enter results); Complete Time: 21:48 ds4 11/30 21:41 Order name: Urine --Ancillary (enter results) mw2 11/30 22:04 Order name: Urine Culture [facility] 11/30 21:16 Order name: IV Saline Lock; Complete Time: 21:35 kb 11/30 21:16 Order name: Labs collected and sent; Complete Time: 21:35 kb 11/30 21:17 Order name: Urine Dipstick-Ancillary (obtain specimen); Complete Time: 21:41 kb 11/30 21:17 Order name: Urine Test (obtain specimen); Complete Time: 21:41 kb Administered Medications: 21:35 Drug: NS 0.9% 1000 ml Route: IV; Rate: 1000 ml; Site: left antecubital; sf1 23:02 Drug: Rocephin (cefTRIAXone) 1 grams Route: IV; Rate: calculated rate; Site: left sf1 antecubital; 23:03 Drug: Potassium Chloride 20 mEq Route: PO; sf1 Disposition: 12/01 00:12 Co-signature as Attending Physician, Kenn Avila MD I agree with the assessment and kdr plan of care. Disposition Summary: 11/30/21 22:56 Discharge Ordered Location: Home kb Condition: Stable kb Diagnosis - UTI/ Urinary tract infection, site not specified kb Followup: kb - With: Emergency Department - When: As needed - Reason: Worsening of condition Followup: kb - With: Private Physician - When: 2 - 3 days - Reason: Recheck today's complaints, Continuance of care, Re-evaluation by your physician Discharge Instructions: - Discharge Summary Sheet kb - Urinary Tract Infection, Adult, [id number] kb Forms: - Medication Reconciliation Form kb - Thank You Letter kb - Antibiotic Education kb - Prescription Opioid Use kb Prescriptions: - Augmentin 875-125 mg Oral Tablet - take 1 tablet by ORAL route every 12 hours for 10 days; 20 tablet; Refills: 0, kb Product Selection Permitted Signatures: Dispatcher [employer] EDNE Stacey Murphy, ZACH-C Kenn Garrett MD MD kdr Loubet, Lynsea, RN RN ll3 Dipika Rasheed RN RN sf1 Corrections: (The following items were deleted from the chart) 11/30 22:55 22:55 Counseling: I had a detailed discussion with the patient and/or guardian audra regarding: the historical points, exam findings, and any diagnostic results supporting the discharge/admit diagnosis, lab results, radiology results, the need for outpatient follow up, a family practitioner, to return to the emergency department if symptoms worsen or persist or if there are any questions or concerns that arise at home, audra
[2021-11-30] MEDS ORDERED: POTASSIUM CL SA 10 MEQ TAB PO ONE (23:00)
[2021-11-30] MEDS ORDERED: CEFTRIAXONE 1000 MG/VIAL ONE (23:00)
[2021-11-30 23:23] VITALS: BP 100/87; TEMP 97.9; O2SAT 100
--- NOTE | 2021-12-01 17:00 | RAD REPORT ---
EXAM DESCRIPTION: CT - Abdomen Pelvis W Contrast - 12/01/2021 3:54 am CLINICAL HISTORY: 21 years, Female, ABD PAIN COMPARISON: None. TECHNIQUE: Contrast-enhanced images of the abdomen and pelvis were performed utilizing 5 mm slice th ickness at 5 mm interval reconstruction from the lung bases to the ischial tuberosities after the adm inistration IV contrast. In addition multiplanar reformats in the coronal and sagittal plane were obtained and reviewed. This exam was performed according to our departmental dose-optimization protocol, which includes auto mated exposure control, adjustment of the mA and/or kV according to patient size and/or use of iterat ryanne reconstruction technique. FINDINGS: The lung bases demonstrate to be clear. The liver, pancreas, spleen and adrenal glands demonstrate to be unremarkable, no focal lesions are n oted. The gallbladder is contracted with a wall thickening most likely related to underdistention. There is minimal periportal hypodensity suggesting most likely edema findings are nonspecific and/or could be seen and ascending cholangitis and/or cholecystitis and/or pulmonary venous congestion. The kidneys demonstrate normal uptake of contrast media. No evidence for nephrolithiasis and/or hydro nephrosis. Grossly the unopacified stomach is distended with fluid content and layering fat density and alignmen t. Otherwise the stomach, small bowel and large bowel demonstrate to be within normal limits. There is no evidence for bowel dilatation and/or free air. The appendix is normal. The left side colon i s unremarkable The urinary bladder demonstrate to be unremarkable. The uterus is within normal limits. There are n o significant adnexal masses. The aorta demonstrate to be normal. There is no retroperitoneal lym phadenopathy. There is no evidence for ascites/or abnormal fluid collections. The rest of the soft ti ssue and bony structures are within normal limits. IMPRESSION: Minimal periportal hypodensity suggesting most likely edema findings are nonspecific and /or could be seen and/or could be seen and could be seen and ascending cholangitis and/or cholecystit is and/or pulmonary venous congestion. Contracted gallbladder with a wall thickening most likely related to underdistention/lack of fasting. 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 The interpreting radiologist is fully responsible for the content of the report.
== END 2021-11-30 23:16 | disposition home or self-care (01) ==
LOC: ER 21:04
DX: N39.0 Urinary tract infection, site not specified (principal)
CPT/HCPCS: 87088; 85025; 87086; 80048; 36415; 81025; 80076; 83690; 74177; 96374; 99284; Q9967; J7030; 81003; 81015

== ENCOUNTER 2025-05-21 03:39 | Emergency (ER) | payer OTHER ==
--- OUTSIDE RECORDS SUMMARY | 2025-05-21 03:36 | XMS REPORT | Continuity of Care Document ---
Author Name Unknown Address [address] [facility] [address] [place] [address] [facility] [place] Address [address] [facility] 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 Name Role Phone Pcp, Pcp Primary Care Physician Unavailab Aayush Lopez Attending Clinician UnaBRISA Stiles Attending Clinician Un available Brisa Palomino NP Attending Clinician Elaine Attending Clinician Unavailable Ekaterina Maloney Attending Clinician Unavailable UNIQUE TORRES Attending Clinician Unavailable Unique Torres MD Attending Clinician [phone] Doctor Unassigned, [place] Attending Clinician U LUCY Pretty Attending Clinician Unavailable Lucy Ervin Attending Clinician [phone] Luz Leslie MD Attending Clinician [phone] Lab, Yunior [facility] Pob I Attending Clinician Unavailab Franci Valadez Attending Clinician [phone] FRANCI ESQUIVEL Attending Clinician Unavailable Raju_P Attending Clinician Unavailable LUZ LESLIE M.D. Attending Clinician UnavailBARI De Leon M.D. Attending Clinician Unavail BENNY Almendarez Attending Clinician Unavailable Aayush Reyna Admitting Clinician Jose Shaw_[place] Admitting Clinician Unavailable Physician, No Primary or Family Admitting Clinic jerry Unavailable UNIQUE TORRES Admitting Clinician Unavailable Unique Torres MD Admitting Clinician [phone] LUCY MARIE Admitting Clinician Unavailable Evy_P Admitting Clinician Unavailable Payers Payer Name Policy Type Policy Number Effective Date Expirati on Date Source [employer]BSTX PPO [id number] 2019 00:00:00 [employer] [facility] [employer] COMM [id number] 2024 00:00:00 [place] [id number] 2018 00:00:00 [place] [id number] 2018 00:00:00 [place] [facility] [place] [id number] 2022 00:00:00 Problems Condition Name Condition Details Condition Category Status Onset Date Resolution Date Last Treatment Date Treating Clinician Comments Source Left wrist pain Left wrist pain Disease Active 2020-10 00:00: 00 [facility] Contusion of left forearm Contusion of left forearm Disease Active 2020-10 00:00: 00 [facility] Acute bronchitis Acute Bronchitis Problem Active 2019-10 00:00: 00 [facility] Exposure to SARS-CoV-2 Exposure to SARS-CoV-2 Problem Active 2019-10 00:00: 00 [facility] Aortic valve regurgitat ion Aortic Valve Regurgitat ion Problem Active 2019-10 00:00: 00 [facility] Headache Headache Problem Active 2015-10 2 00:00: 00 [facility] Acute upper respirator y infection Acute Upper Respirator y Infection Problem Active [facility] Eruption Eruption Problem Active [facility] Epistaxis Epistaxis Problem Active [facility] Contusion of forearm Contusion of Forearm Problem Active [facility] History of Heart disease History of Heart disease [facility] Acute pain of right knee Acute pain of right knee Problem Active [facility] Patellar tendinitis of right knee Patellar tendinitis of right knee Problem Active [facility] Complex tear of medial meniscus of right knee as current injury, subsequent encounter Complex tear of medial meniscus of right knee as current injury, subsequent encounter Problem Active [facility] Right hip pain Right hip pain Problem Active [facility] Right snapping hip Right snapping hip Problem Active [facility] Labral tear of right hip joint Labral tear of right hip joint Problem Active [facility] Allergies, Adverse Reactions, Alerts Allergy Name Allergy Type Status Severity Reaction(s) Onset Date Inactive Date Treating Clinician Comments Source No Known Allergie s DA Active U 12-18 00:00: 00 [facility] NO KNOWN ALLERGIE S Drug Class Active [facility] Social History Social Habit Start Date Stop Date Quantity Comments Source Gender identity 2024-01-03 11:28:54 Identifies as female gender (finding) Mara Song ASSERTION Possible Mara Song [facility] Exposure to SARS-CoV-2 (event) 2022-11-07 00:00:00 2022-11-17 21:04:00 Not sure [facility] Sex Assigned At 2000 00:00:00 2000 00:00:00 [facility] Smoking Status Start Date Stop Date Source Tobacco smoking consumption unknown Mara Song Never smoked tobacco (finding) [facility] Medications Ordered Medication Name Filled Medication Name Start Date Stop Date Current Medication? Ordering Clinician Indication Dosage Frequency Signature (SIG) Comments Components Source albuterol HFA 90 mcg/act inhaler albuterol HFA 90 mcg/act inhaler 01-26 00:00: 00 02-05 23:59 :00 No [id number] 2{puff} Q6H Inhale 2 puffs every 6 hours if needed for wheezing or shortness of breath (cough) for up to 10 days. Lee Song benzonatate (Tessalon) 200 MG capsule benzonatate (Tessalon) 200 MG capsule 01-26 00:00: 00 02-05 23:59 :00 No [id number] 200mg [id number] 3D Take 1 capsule by mouth 3 times a day as needed for cough for up to 10 days. Do not crush or chew. Lee Song amoxicillin -clavulanat e (Augmentin) 500-125 MG tablet amoxicillin -clavulanat e (Augmentin) 500-125 MG tablet -16 00:00: 00 01-31 23:59 :00 No [id number] 500mg Q.5D Take 1 tablet by mouth in the morning and 1 tablet in the evening. Do all this for 5 days. Lee Song pseudoephed rine-guaiFE Nesin ER (Mucinex D) 60-600 MG 12 hr tablet pseudoephed rine-guaiFE Nesin ER (Mucinex D) 60-600 MG 12 hr tablet -16 00:00: 00 01-31 23:59 :00 No [id number] 1{tbl} Take 1 tablet by mouth every 12 hours if needed for congestion or cough for up to 5 days. Do not crush, chew, or split. Lee Song ondansetron (ZOFRAN (PF)) injection 4 mg 2021-10 01:45: 00 09-24 01:53 :00 No 4mg 4 mg, Slow IV Push, ONCE, 1 dose, On Fri09/23/22 at 1945, STEPHANIE [facility] meloxicam (Mobic) 15 MG tablet 2020-10 00:00: 00 Yes [id number] TAKE 1 TABLET(15 MG) BY MOUTH 1 TIME EACH DAY [facility] meloxicam (Mobic) 15 MG tablet 2020-10 00:00: 00 08-14 00:00 :00 No [id number] 15mg QD Take 1 tablet (15 mg total) by mouth 1 (one) time each day. [facility] medroxyprog esterone 150 mg/mL intramuscul ar syringe ADM 1 ML IM Q 3 MONTHS medroxyprog esterone 150 mg/mL intramuscul ar syringe ADM 1 ML IM Q 3 MONTHS 2019-10 00:00: 00 No medroxypro gesterone 150 mg/mL intramuscu lar syringe ADM 1 ML IM Q 3 MONTHS [facility] Meloxicam 15 MG Oral Tablet Meloxicam 15 MG Oral Tablet 3-14 00:00: 00 Yes BARI ANGULO M.D. QD TAKE 1 TABLET DAILY WITH FOOD. [facility] benzonatate 100 mg capsule Take 1 capsule 3 times a day by oral route for 10 days. benzonatate 100 mg capsule Take 1 capsule 3 times a day by oral route for 10 days. No 1capsul e(s) TID benzonatat e 100 mg capsule Take 1 capsule 3 times a day by oral route for 10 days. [facility] Bromfed DM 2 mg-30 mg-10 mg/5 mL oral syrup Take 10 mL every 4-6 hours by oral route as needed. Bromfed DM 2 mg-30 mg-10 mg/5 mL oral syrup Take 10 mL every 4-6 hours by oral route as needed. No 10mL Q5H Bromfed DM 2 mg-30 mg-10 mg/5 mL oral syrup Take 10 mL every 4-6 hours by oral route as needed. [facility] ProAir HFA 90 mcg/actuati on aerosol inhaler Inhale 2 puffs every 4 hours by inhalation route. ProAir HFA 90 mcg/actuati on aerosol inhaler Inhale 2 puffs every 4 hours by inhalation route. No 2puff(s ) Q4H ProAir HFA 90 mcg/actuat ion aerosol inhaler Inhale 2 puffs every 4 hours by inhalation route. [facility] Accutane 40 MG CAPS Accutane 40 MG CAPS Yes [facility] Vital Signs Vital Name Observation Time Observation Value Comments S ource Diastolic blood pressure 2025-01-26 11:01:00 70 mm[Hg] [facility] Heart rate 2025-01-26 11:01:00 98 /min [facility] Body temperature 2025-01-26 11:01:00 36.72 Veronica [facility] Respiratory rate 2025-01-26 11:01:00 18 /min [facility] Body height 2025-01-26 11:01:00 162.6 cm [facility] Body weight 2025-01-26 11:01:00 49.896 kg [facility] BMI 2025-01-26 11:01:00 18.88 kg/m2 [facility] Oxygen saturation in Arterial blood by Pulse oximetry 2025-01-26 11:01:00 99 /min Mara diaz Epic Systolic blood pressure 2025-01-26 11:01:00 103 mm[Hg] Mara diaz Epic Diastolic blood pressure 2025-01-26 11:01:00 70 mm[Hg] Mara diaz Epic Heart rate 2025-01-26 11:01:00 98 /min [facility] Body temperature 2025-01-26 11:01:00 36.72 Veronica Mara Rhoadesann Epic Respiratory rate 2025-01-26 11:01:00 18 /min Mara Rhoadesann [facility] Body height 2025-01-26 11:01:00 162.6 cm Christitus Rhoadesann [facility] Body weight 2025-01-26 11:01:00 49.896 kg Christitus Rhoadesann [facility] BMI 2025-01-26 11:01:00 18.88 kg/m2 Christitus Rhoadesann Epic Oxygen saturation in Arterial blood by Pulse oximetry 2025-01-26 11:01:00 99 /min Mara diaz [facility] Systolic blood pressure 2025-01-26 11:01:00 103 mm[Hg] Mara diaz [facility] Body weight 2022-11-18 06:00:00 53.978 kg [facility] BMI 2022-11-18 06:00:00 20.43 kg/m2 Univ [facility] Systolic blood pressure 2022-11-18 04:17:00 111 mm[Hg] [facility] Diastolic blood pressure 2022-11-18 04:17:00 60 mm[Hg] [facility] Heart rate 2022-11-18 04:17:00 86 /min Unive [facility] Respiratory rate 2022-11-18 04:17:00 16 /min [facility] Body temperature 2022-11-18 03:15:00 36.83 Veronica [facility] Systolic blood pressure 2022-09-24 04:01:35 112 mm[Hg] [facility] Diastolic blood pressure 2022-09-24 04:01:35 70 mm[Hg] [facility] Heart rate 2022-09-24 04:01:35 70 /min Un[facility] Respiratory rate 2022-09-24 04:01:35 18 /min [facility] Oxygen saturation in Arterial blood by Pulse oximetry 2022-09-24 04:01:35 99 /min [place] [facility] Body temperature 2022-09-24 01:39:00 37 Veronica [facility] Body height 2022-09-24 01:39:00 162.6 cm [facility] Body weight 2022-09-24 01:39:00 50.032 kg [facility] BMI 2022-09-24 01:39:00 18.93 kg/m2 [facility] Body height 2021 21:21:00 [facility] 2021 21:21:00 [facility] BMI 2021 21:21:00 20.14 [facility]m2 [facility] Procedures Procedure Date / Time Performed Performing Clinician Source [id number] 2023-03-21 00:00:00 [facility] [id number] 2023-03-21 00:00:00 [facility] [id number] 2023-03-21 00:00:00 [facility] [id number] 2023-03-21 00:00:00 [facility] [id number] 2023-03-21 00:00:00 [facility] ABORH CONFIRMATION (LAB ONLY) 2022-11-18 05:25:00 Adum, Unique Hernandez [facility] HB -MATERNAL HEMORRHAGE SCREEN 2022-11-18 04:42:00 Adum, Unique Hernandez [facility] HB ABO GROUPING 2022-11-18 04:42:00 Adum, Unique Lake [facility] RHO (D) IMMUNE GLOBULIN 2022-11-18 04:42:00 Adum, Maude Hernandez [facility] URINALYSIS 2022-11-18 03:36:00 Adum, Unique Hernandez [facility] ASSIGNMENT OF BENEFITS 2022-11-18 02:40:59 Docto r Unassigned, [place] [facility] CONSENT/REFUSAL FOR DIAGNOSIS AND TREATMENT 2022-11-18 02:40:12 Doctor Unassigned, [place] [facility] FIRST TRIMESTER LESS THAN 14 WEEKS WITH TRANSVAGINAL 2022-09-24 02:56:28 Lucy Marie [facility] LIPASE 2022-09-24 01:55:00 Lucy Marie [facility] HEPATIC FUNCTION PANEL ([id number]) (ALB,T.PRO,BILI T,BU/BC,ALT,AST,ALK PHOS) 2022-09-24 01:55:00 Lucy Marie [facility] BASIC METABOLIC PANEL (NA, K, CL, CO2, GLUCOSE, BUN, CREATININE, CA) 2022-09-24 01:55:00 [facility] CBC WITH DIFF 2022-09-24 01:55:00 Lucy Marie [facility] URINALYSIS 2022-09-24 01:55:00 Lucy Marie [facility] NOTICE OF PRIVACY PRACTICES 2022-09-24 01:13:19 Doctor Unassigned, [place] [facility] CONSENT/REFUSAL FOR DIAGNOSIS AND TREATMENT 2022-09-24 01:13:07 Doctor Unassigned, [place] [facility] XR FOREARM 2 VIEWS LEFT 2021 21:30:29 Jacek Leslie brandon [facility] MR Hip w contrast [id number] 2020-03-31 00:00:00 [facility] XRAY Hip arthrogram Unilateral (Dx) [id number] 2020-03-31 00:00:00 [facility] MR Knee wo contrast [id number] 2019-01-15 00:00:00 [facility] Plan of Care Planned Activity Planned Date Details Comments Source Instructions Bea martinez Group Encounters Start Date/Time End Date/Time Encounter Type Admission Type Attending Clinicians Care Facility Care Department Encounter ID Source 2023-04-10 11:47:00 Inpatient NIHARIKA Aayush Reyna [facility] [id number] [facility] 2021 16:05:34 Outpatient [facility] [id number] [facility] 2025-01-26 10:58:38 2025-01-26 12:56:28 Outpatient Elective BRISA PALOMINO [facility] [id number] [facility] 2025-01-26 10:55:00 2025-01-26 11:10:00 Office Visit Brisa Palomino [facility] [id number] [facility] 2023-03-21 03:36:00 2023-03-23 11:49:00 Inpatient EM Aayush Reyna [facility] [id number] [facility] 2023-03-02 21:28:00 2023-03-02 22:24:00 Emergency EM Aayush Reyna [facility] [id number] [facility] 2023-03-01 22:45:00 2023-03-02 00:35:00 Emergency EM Aayush Reyna [facility] [id number] [facility] 2023-02-05 20:56:00 2023-02-05 23:42:00 Emergency EM Aayush Reyna [facility] [id number] [facility] 2022-12-18 18:15:00 2022-12-18 20:06:00 Emergency EM Aayush Reyna [facility] [id number] [facility] 2022-12-13 10:51:00 2022-12-13 10:51:00 Outpatient Ekaterina Sanders [facility] [id number] [facility] 2022-11-17 20:56:00 2022-11-18 00:20:00 Outpatient X UNIQUE TORRES [facility] [id number] [facility] 2022-11-17 20:56:00 2022-11-18 00:20:00 Emergency Unique Torres [facility] [id number] [id number] [facility] 2022-11-17 00:00:00 2022-11-17 00:00:00 Orders Only Doctor Unassigned, [place] [facility] [id number] [id number] [id number] [facility] 2022-09-23 19:45:00 2022-09-23 22:08:00 Emergency X LUCY MARIE [facility] ERT [id number] [facility] 2022-09-23 19:45:00 2022-09-23 22:08:00 Emergency Lucy Marie [facility] [id number] [id number] [id number] [facility] 2021 15:43:34 2021 16:47:37 Office Visit Luz Leslie [facility] [id number] [facility] 2021 00:00:00 2021 00:00:00 Refill Luz Leslie [facility] [place] [id number] [id number] [facility] 2020-09-23 08:47:02 2020-09-23 09:07:02 Laboratory Only Lab, Adc Fam Pob I [facility] Professio nal Office Building One [id number] [id number] [id number] [id number] [facility] 2020-09-23 08:40:00 2020-09-23 08:40:00 Outpatient R GREENFRANCI [facility] [id number] [facility] 2020-09-23 00:00:00 2020-09-23 00:00:00 Letter (Out) Doctor Unassigned, [place] [facility] [id number] [id number] [id number] [id number] [facility] 2020-03-31 10:15:00 2020-03-31 10:15:00 Appointmen t; LUZ LESLIE M.D. MAYS, MATTHEW, M.D. [facility] [place] 1 [id number] [facility] 2019-01-15 09:15:00 2019-01-15 09:15:00 Appointmen t; LUZ LESLIE M.D. MAYS, MATTHEW, M.D. [facility] Orthopedic Surgery - [place] 1 [id number] [facility] 2018-12-24 10:45:00 2018-12-24 10:45:00 Appointmen t; BARI ANGULO M.D. WORSHAM, JACOB, M.D. [facility] [place] [id number] [facility] 2018-07-16 12:38:00 2018-07-16 12:38:00 Outpatient [facility] [id number] [facility] 2016-09-09 10:21:00 2016-09-09 10:21:00 Outpatient [facility] [id number] [facility] Results Test Description Test Time Test Comments Results Result Co mments Source AG HEPATITIS B [id number] 05:37:00* Test Item Value Reference Range Interpretation Comme nts AG HEPATITIS B SURFACE (test code = HBSAG) NONREACTIVE NONREACTIVE AB HEPATITIS C [id number] 05:37:00* Test Item Value Reference Range Interpretation Comme nts AB HEPATITIS C (test code = HCVAB) NONREACTIVE NONREACTIVE SIGNAL TO CUTOFF (test code = CUTOFF) 0.04 <0.80 N AB [id number] 05:37:00* Test Item Value Reference Range Interpretation Comme nts AB TREPONEMA (test code = TREPAB) NONREACTIVE NONREACTIVE AB HIV 1 05:37:00* Test Item Value Reference Range Interpretation Comme nts AB HIV 1 2 (test code = TRY75ZD) NONREACTIVE NONREACTIVE Done by [employer] 4th Gen HIV Ag/Ab Combo Screen CBC W/AUTO [id number] 04:19:00* Test Item Value Reference Range Interpretation Comme nts WHITE BLOOD CELL (test code = WBC) 11.1 K/mm3 6.5-12.3 N RED BLOOD CELL (test code = RBC) 3.94 M/mm3 3.51-4.69 N HEMOGLOBIN (test code = HGB) 11.3 g/dL 10.1-13.8 N HEMATOCRIT (test code = HCT) 33.8 % 32.5-41.8 N MEAN CELL VOLUME (test code = MCV) 85.8 fL 84.6-96.6 N MEAN CELL HGB (test code = MCH) 28.7 pg 27.3-33.9 N MEAN CELL HGB CONCETRATION ( test code = MCHC) 33.4 gm/dL 32.0-34.2 N RED CELL DISTRIBUTION WIDTH (test code = RDW) 13.7 % 12.2-16.3 N PLATELET COUNT (test code = PLT) 289 K/mm3 134-363 N MEAN PLATELET VOLUME (test c ode = MPV) 10.3 fL 9.2-12.7 N NEUTROPHIL % (test code = NT%) 67.9 % 57.9-77.3 N LYMPHOCYTE % (test code = LY%) 18.8 % 14.5-29.7 N MONOCYTE % (test code = MO%) 10.5 % 3.6-10.2 H EOSINOPHIL % (test code = EO%) 1.1 % 0.0-3.0 N BASOPHIL % (test code = BA%) 0.3 % 0.1-0.9 N NEUTROPHIL # (test code = NT#) 7.5 K/mm3 LYMPHOCYTE # (test code = LY#) 2.1 K/mm3 MONOCYTE # (test code = MO#) 1.2 K/mm3 EOSINOPHIL # (test code = EO#) 0.12 K/mm3 BASOPHIL # (test code = BA#) 0.0 K/mm3 RBC MORPHOLOGY REQUIRED (nic t code = RBCM) NORMAL NORMAL PLATELET MORPHOLOGY REQUIRED (test code = PLTMR) NORMAL NORMAL RUPTURE OF [id number] 03:25:00* Test Item Value Reference Range Interpretation Comme nts RUPTURE OF MEMBRANES (test c ode = ROM) RUPTURED COMPREHENSIVE METABOLIC [id number] 00:23:00* Test Item Value Reference Range Interpretation Comme nts SODIUM (test code = NA) 133 mEq/L 135-145 L POTASSIUM (test code = K) 3.7 mEq/L 3.5-5.0 N CHLORIDE (test code = CL) 100 mEq/L 100-115 N CARBON DIOXIDE (test code = CO2) 27 mEq/L 22-31 N ANION GAP (test code = GAP) 10.20 10-20 N GLUCOSE (test code = GLU) 99 mg/dL 65-110 N BLOOD UREA NITROGEN (test code = BUN) 12 mg/dL 7-18 N GLOMERULAR FILTRATION RATE (test code = GFR) 136 ml/min >60 N The Glomerular Filtration Rate is a calculated parameterbased on serum Creatinine, patient age and sex. GFR valuesless than 60 mL/min/1.73 square meters are indicative ofChronic Kidney Disease. Values less than 15 mL/min/1.73square meters indicate Kidney failure. The calculation forGFR is based on the CKD-EPI (2020) calculation. This formulais race indifferent and is the recommended formula for GFRby the National Kidney Foundation for Adults.The GFR will not calculate if the sex is unknown or if thepatient's age is <18 years. CREATININE (test code = CREAT) 0.5 mg/dL 0.5-1.0 N TOTAL PROTEIN (test code = PROT) 5.8 gm/dL 6.3-8.2 L ALBUMIN (test code = ALB) 2.6 gm/dL 3.4-4.8 L CALCIUM (test code = CA) 8.9 mg/dL 8.4-10.2 N BILIRUBIN TOTAL (test code = BILT) 0.2 mg/dL 0.2-1.0 N SGOT/AST (test code = AST) 17 units/L 15-37 N SGPT/ALT (test code = ALT) 29 units/L 12-78 N ALKALINE PHOSPHATASE TOTAL (test code = ALKP) 113 units/L 46-116 N URIC [id number] 00:23:00* Test Item Value Reference Range Interpretation Comme nts URIC ACID (test code = URIC) 3.7 mg/dL 2.6-6.0 N LACTIC DEHYDROGENASE(LDH)2023-03-02 00:23:00* Test Item Value Reference Range Interpretation Comme nts LACTIC DEHYDROGENASE(LDH) (t est code = LDH) 146 units/L 81-234 N UR PROTEIN/CREATININE [id number] 00:13:00* Test Item Value Reference Range Interpretation Comme nts UR PROTEIN RANDOM (test code = PROTU) 10.9 mg/dL UR CREATININE RANDOM (test code = CREATU) 27.6 mg/dL PROTEIN/CREATININE RATIO (te st code = P/CRATIO) 394.9 mg/gcrea <200 H CBC W/AUTO [id number] 23:57:00* Test Item Value Reference Range Interpretation Comme nts WHITE BLOOD CELL (test code = WBC) 12.7 K/mm3 6.5-12.3 H RED BLOOD CELL (test code = RBC) 3.19 M/mm3 3.51-4.69 L HEMOGLOBIN (test code = HGB) 9.2 g/dL 10.1-13.8 L HEMATOCRIT (test code = HCT) 27.2 % 32.5-41.8 L MEAN CELL VOLUME (test code = MCV) 85.3 fL 84.6-96.6 N MEAN CELL HGB (test code = MCH) 28.8 pg 27.3-33.9 N MEAN CELL HGB CONCETRATION ( test code = MCHC) 33.8 gm/dL 32.0-34.2 N RED CELL DISTRIBUTION WIDTH (test code = RDW) 12.4 % 12.2-16.3 N PLATELET COUNT (test code = PLT) 259 K/mm3 134-363 N MEAN PLATELET VOLUME (test c ode = MPV) 10.3 fL 9.2-12.7 N NEUTROPHIL % (test code = NT%) 67.7 % 57.9-77.3 N LYMPHOCYTE % (test code = LY%) 18.2 % 14.5-29.7 N MONOCYTE % (test code = MO%) 10.1 % 3.6-10.2 N EOSINOPHIL % (test code = EO%) 1.6 % 0.0-3.0 N BASOPHIL % (test code = BA%) 0.3 % 0.1-0.9 N NEUTROPHIL # (test code = NT#) 8.6 K/mm3 LYMPHOCYTE # (test code = LY#) 2.3 K/mm3 MONOCYTE # (test code = MO#) 1.3 K/mm3 EOSINOPHIL # (test code = EO#) 0.20 K/mm3 BASOPHIL # (test code = BA#) 0.0 K/mm3 RBC MORPHOLOGY REQUIRED (nic t code = RBCM) NORMAL NORMAL PLATELET MORPHOLOGY REQUIRED (test code = PLTMR) NORMAL NORMAL - [place] [id number] 00:00:00 [facility] 2000 Sex: F Patient Name: CUCA SANTIAGO Unit No: [id number] EXAMS: CPT CODE: [id number] US PREGNAN CY LTD [id number] PROCEDURE INFORMATION: Exam: US , Limited Exam date and time: 02/05/2023 11:11PM Age: 22 years old Clinical indication: Screening exam; Other: Iup at 30.6 weeks, lof; LABS AND CLINICAL REPORTS: Gestational age (Established): 30 w 6 d Estimated due date (Established): 04/10/2023 TECHNIQUE: Imaging protocol: Real-time ultrasound of the maternal uterus with image documentation. Exam focused on the clinical indication. COMPARISON: US PELVIS COMPLETE 10/12/20187:50 AM FINDINGS: EGA: 30 weeks 6 days Gestation: Flores Presentation: Vertex heart rate: 156 bpm Amniotic fluid: 12.8 cm Placenta: Anterior, grade 2. No previa or retroplacental fluid. Cervical length: 3.4 cm, no gross endocervical fluid. Right ovary not visualized. Left ovary measures 2.7 x 0.9 x 2.1 cm, normal appearance. IMPRESSION: 1. Viable gestation in vertex presentation, heart rate 156 bpm. 2. No acute abnormality demonstrated. at 0037 Reported and signed by: Maritza Casper MD CC: Hyacinth Mix MD; Aayush Valle MD Technologist: Ale Orozco RDMS Probe: [id number] D/ (0037) GCD.CPS Orig Print D/T: S: 02/06/2023 (0038) [facility] NAME: CLAYCULLENSUMIT IbarraELIANA VELAZQUEZ Radiology Department PHYS: Hyacinth Marte MD [address] : 2000 AGE: 22 SEX: F [place] [address] LOC: OzzyRAFITA PHONE #: [phone] EXAM DATE: 02/05/2023 STATUS: REG ER FAX #: [phone] RAD NO: Page 1 Signed Report Patient Name: CUCA SANTIAGO Unit No: [id number] EXAMS: CPT CODE: [id number] LTD [id number] (Continued) [facility] NAME: CLAYCULLENStaceyCUCA Radiology Department PHYS: Hyacinth Marte MD [address] : 2000 AGE: 22 SEX: F [place] [address] LOC: OzzyRAFITA PHONE #: [phone] EXAM DATE: 02/05/2023 STATUS: REG ER FAX #: [phone] RAD NO: Page 2 Signed Report RUPTURE OF [id number] 22:11:00* Test Item Value Reference Range Interpretation Comme nts RUPTURE OF MEMBRANES (test c ode = ROM) NON-RUPTURED URINALYSIS [id number] 18:46:00* Test Item Value Reference Range Interpretation Comme nts UA COLOR (test code = COLU) YELLOW YELLOW UA APPEARANCE (test code = APPU) Slightly-Cloudy CLEAR UA GLUCOSE DIPSTICK (test code = DGLUU) NEGATIVE NEG UA BILIRUBIN DIPSTICK (test code = BILU) NEGATIVE NEG UA KETONE DIPSTICK (test cod e = KETU) NEGATIVE NEG UA SPECIFIC GRAVITY (test code = SGU) 1.018 1.001-1.035 N UA BLOOD DIPSTICK (test code = MARC) NEG NEG UA PH DIPSTICK (test code = DIO) 6.0 5-9 UA PROTEIN DIPSTICK (test code = PROU) NEGATIVE NEG UA UROBILINIOGEN DIPSTICK (test code = URO) NEGATIVE mg/dL NEG UA NITRITE DIPSTICK (test code = VIPIN) NEG NEG UA LEUKOCYTE ESTERASE DIPSTICK (test code = LEUU) 3+ NEG A UA WBC (test code = WBCU) 6-10 #/hpf NONE SEEN A UA RBC (test code = RBCU) 0-2 #/hpf NONE SEEN UA EPITHELIAL CELLS (test code = EPIU) MODERATE #/HPF RARE-FEW A UA BACTERIA (test code = BACU) RARE /HPF RARE-FEW UA MUCUS (test code = MUCU) RARE NONE SEEN URINE SAMPLE: CLEAN CATCHComment On arrival if delivery is not imminentFETAL MATERNAL HEMO [id number] 05:51:52* Test Item Value Reference Range Interpretation Comme [facility] SCREEN (test code = 846) Negative Performed at [facility] Laboratory [facility] Blood [address] Free: [phone] No. [id number] RHIG REQUIRED? (test code = 1747) 1 Syringe Performed at [facility] Laboratory [facility] Blood [place] [address]Toll Free: [phone] No. [id number] [facility] (D) IMMUNE [id number] 05:50:58* Test Item Value Reference Range Interpretation Comme [facility] RHIG CANDIDATE? (test code = 5055) Yes- see comment A Patient is a candidate for RhIg- Patient is Rh Negative and currently .Performe d at [facility] Laboratory Services - [facility] Blood [place] [address]Toll Free: [phone] No. [id number] Lab Interpretation (test code = 49488-1) Abnormal [facility]ieABORH Confirmation (Lab Only)2022-11-18 05:45:20* Test Item Value Reference Range Interpretation Comme nts ABO & RH (test code = 20) A Negative Performed at [facility] Laboratory Services [facility] Blood [address] Free: [phone] No. [id number] [facility]ieType and Screen - ONCE [id number] 05:22:11* Test Item Value Reference Range Interpretation Comme [facility] ABO & RH (test code = 20) A Negative Performed at [facility] Laboratory [facility] Blood [address] Free: [phone] No. [id number] IAT (test code = 1185) Negative Performed at [facility] Laboratory [facility] Blood [address] Free: [phone] No. [id number] [facility] MET[facility]OL[facility]EL (NA, K, CL, CO2, GLUCOSE, BUN, CREATININE, CA)2022-09-24 02:18:40* Test Item Value Reference Range Interpretation Comme [facility] NA (test code = 7281045752) 131 mmol/L 135-145 L K (test code = 3971649467) 3.8 mmol/L 3.5-5.0 CL (test code = 2051311161) 102 mmol/L 98-108 CO2 TOTAL (test code = 6815655147) 23 mmol/L 23-31 AGAP (test code = 3241624232) 2-16 BUN (test code = 1467465016) 9 mg/dL 7-23 GLUCOSE (test code = 5587084921) 90 mg/dL 70-110 CREATININE (test code = 5554425197) 0.49 mg/dL 0.50-1.04 L CALCIUM (test code = 5289347849) 8.7 mg/dL 8.6-10.6 eGFR (test code = 5538088667) mL/min/1.73m2 DULCE (test code = DULCE) Association of Glomerular Filtration Rate (GFR) and Staging of Kidney Disease* + --+ --+ ------+| GFR (mL/min/1.73 m2) ?| With Kidney Damage ?| ?Without Kidney Damage+ --------+ --------+ +| ?>90 ?| ?Stage one ?| ? Normal ?+ ---+ ---+ -------+| ?60-89 ?| ?Stage two ?| ? Decreased GFR ? + --+ --+ ------+| ?30-59 ?| ?Stage three ?| ? Stage three ? + --+ --+ ------+| ?15-29 ?| ?Stage four ? | ? Stage four ?+ ---+ ---+ -------+| ?<15 (or dialysis) ? ?| ?Stage five ? | ? Stage five ?+ ---+ ---+ -------+ *Each stage assumes the associated GFR level has been in effect for at least three months. ?Stages 1 to 5, with or without kidney disease, indicate chronic kidney disease. Notes: Determination of stages one and two (with eGFR >59mL/min/1.73 m2) requires estimation of kidney damage for at least three months as defined by structural or functional abnormalities of the kidney, manifested by either:Pathological abnormalities or Markers of kidney damage (including abnormalities in the composition of the blood or urine or abnormalities in imaging tests). Lab Interpretation (test code = 36897-4) Abnormal [facility]achieHEPATIC FUNCTION PANEL (20458) (ALB,T.PRO,BILI T,BU/BC,ALT,AST,ALK PHOS)2022-09-24 02:18:40* Test Item Value Reference Range Interpretation Comme nts TOTAL BILI (test code = 3742256415) 0.4 mg/dL 0.1-1.1 BILI UNCON (test code = 3783396689) 0.4 mg/dL 0.1-1.1 BILI CONJ (test code = 4798543243) 0.0 mg/dL 0.0-0.3 T PROTEIN (test code = 5210072384) 6.6 g/dL 6.3-8.2 ALBUMIN (test code = 9289251518) 4.0 g/dL 3.5-5.0 ALK PHOS (test code = 8772274085) 41 U/L 34-122 ALTv (test code = 1742-6) 12 U/L 5-35 AST(SGOT) (test code = 6957129347) 17 U/L 13-40 Lab Interpretation (test cod e = 94904-4) Normal [facility]ieLIPASE2022-12-13 02:18:40* Test Item Value Reference Range Interpretation Comme nts LIPASE (test code = 2658500251) 83 U/L 0-220 Lab Interpretation (test cod e = 90339-5) Normal [facility]ieCBC WITH [id number] 02:08:41* Test Item Value Reference Range Interpretation Comme nts WBC (test code = 6690-2) See_Comment [Automated [place] ge] The system which generated this result transmitted reference range: 4.30 - 11.10 10*3/?L. The reference range was not used to interpret this result as normal/abnormal. RBC (test code = 789-8) See_Comment [Automated messa ge] The system which generated this result transmitted reference range: 3.93 - 5.25 10*6/?L. The reference range was not used to interpret this result as normal/abnormal. HGB (test code = 718-7) 12.0 g/dL 11.6-15.0 HCT (test code = 4544-3) 34.4 % 35.7-45.2 L MCV (test code = 787-2) 86.2 fL 80.6-95.5 MCH (test code = 785-6) 30.1 pg 25.9-32.8 MCHC (test code = 786-4) 34.9 g/dL 31.6-35.1 RDW-SD (test code = 06860-9) 40.3 fL 39.0-49.9 RDW-CV (test code = 788-0) 13.0 % 12.0-15.5 PLT (test code = 777-3) See_Comment [Automated [place]] The system which generated this result transmitted reference range: 166 - 358 10*3/?L. The reference range was not used to interpret this result as normal/abnormal. MPV (test code = 19510-5) 9.3 fL 9.5-12.9 L NRBC/100 WBC (test code = 1662821796) See_Comment [Automated me ssage] The system which generated this result transmitted reference range: 0.0 - 10.0 /100 WBCs. The reference range was not used to interpret this result as normal/abnormal. NRBC x10^3 (test code = 8197520028) See_Comment [Automated messa ge] The system which generated this result transmitted reference range: 10*3/?L. The reference range was not used to interpret this result as normal/abnormal. GRAN MAT (NEUT) % (test code = 770-8) 62.6 % IMM GRAN % (test code = 1524797598) 0.40 % LYMPH % (test code = 736-9) 25.9 % MONO % (test code = 5905-5) 8.8 % EOS % (test code = 713-8) 1.9 % BASO % (test code = 706-2) 0.4 % GRAN MAT x10^3(ANC) (test code = 0956842077) 6.27 10*3/uL 1.88-7.09 IMM GRAN x10^3 (test code = 7050711283) 0.04 10*3/uL 0.00-0.06 LYMPH x10^3 (test code = 731-0) 2.60 10*3/uL 1.32-3.29 MONO x10^3 (test code = 742-7) 0.88 10*3/uL 0.33-0.92 EOS x10^3 (test code = 711-2) 0.19 10*3/uL 0.03-0.39 BASO x10^3 (test code = 704-7) 0.04 10*3/uL 0.01-0.07 Lab Interpretation (test code = 72812-5) Abnormal [facility][U] XRAY KNEE 4 OR MORE VWS RIGHT [id number] 2018-12-24 10:28:00Images acquired, not reported on this accession number.MO Physicians Notes Date/Time Note Provider [facility] HospitalXuxewie1276-33-67 12:15:09 Diagnosis Acute bacterial sinusitis - Primary Acute sinusitis, unspecified Acute cough [facility] HospitalPcvadqn3184-01-17 12:15:09 [place] [address]-04-16 12:15:09* [facility] HospitalCedizdo1790-83-72 12:15:09* Brisabonilla Palomino, AUBREE - 01/26/2025 10:55 AM CDT Subjective Patient ID: Cuca Santiago is a 24 y.o. female presenting to the Urgent Care with a chief complaint of Cough (Pt complaining of cough for 4 days. Pt also complaining of ear pain in left ear and nasal congestion. Pt states she has chest pain as well. Pt states she did a covid test yesterday and it was neg.). Subjective Pt presents to the Urgent Care for evaluation of sinus congestion. Onset was 7 days ago. Sinus pain is present in the All facial and described as Moderate. Associated symptoms include Cough, Ear pain Bilateral, Facial pain, Headache, Nasal discharge Green, and Post-nasal drip. Alleviating factors include Anti-histamines and Nasal sprays/steroids with Some relief. Patient denies Body aches, Chills, and Fever. Objective BP 103/70 | Pulse 98 | Temp 36.7 ?C (98.1 ?F) (Oral) | Resp 18 | Ht 1.626 m (5' 4") | Wt 49.9 kg (110 lb) | SpO2 99% | BMI 18.88 kg/m? Physical Exam: Vitals and nursing note reviewed. Constitutional: Appearance: Normal appearance. HENT: Head: Normocephalic. Right Ear: A middle ear effusion is present. Left Ear: A middle ear effusion is present. Nose: Nasal tenderness, mucosal edema, congestion and rhinorrhea present. Rhinorrhea is purulent. Right Turbinates: Enlarged. Left Turbinates: Enlarged. Eyes: Pupils: Pupils are equal, round, and reactive to light. Cardiovascular: Rate and Rhythm: Normal rate. Pulmonary: Effort: Pulmonary effort is normal. No respiratory distress. Skin: General: Skin is warm and dry. Neurological: General: No focal deficit present. Mental Status: She is alert and oriented to person, place, and time. Assessment & Plan Acute bacterial sinusitis Orders: amoxicillin-clavulanate (Augmentin) 500-125 MG tablet; Take 1 tablet by mouth in the morning and 1 tablet in the evening. Do all this for 5 days. pseudoephedrine-guaiFENesin ER (Mucinex D) 60-600 MG 12 hr tablet; Take 1 tablet by mouth every 12 hours if needed for congestion or cough for up to 5 days. Do not crush, chew, or split. Acute cough Orders: albuterol HFA 90 mcg/act inhaler; Inhale 2 puffs every 6 hours if needed for wheezing or shortness of breath (cough) for up to 10 days. benzonatate (Tessalon) 200 MG capsule; Take 1 capsule by mouth 3 times a day as needed for cough for up to 10 days. Do not crush or chew. Discussed with pt in detail regarding all results from today's visit, discharge instructions, discharge medications, return to urgent care precautions. Follow up with PCP/Specialist as discussed during visit. Strict ER precautions discussed. Pt verbalized understanding of all information and all questions were answered. Brisa Palomino NP [facility] Ctxvcjt8220-31-48 12:15:09 Mara Church-04-16 12:15:09 Diagnosis Acute bacterial sinusitis - Primary Acute sinusitis, unspecified Acute cough [facility] CenterFxspdom1935-85-07 12:15:09 [facility] Syzcgig5930-53-76 12:15:09* [facility] Osesfsj0424-58-58 12:15:09* Brisa Palomino NP - 01/26/2025 10:55 AM CDT Subjective Patient ID: Cuca Santiago is a 24 y.o. female presenting to the Urgent Care with a chief complaint of Cough (Pt complaining of cough for 4 days. Pt also complaining of ear pain in left ear and nasal congestion. Pt states she has chest pain as well. Pt states she did a covid test yesterday and it was neg.). Subjective Pt presents to the Urgent Care for evaluation of sinus congestion. Onset was 7 days ago. Sinus pain is present in the All facial and described as Moderate. Associated symptoms include Cough, Ear pain Bilateral, Facial pain, Headache, Nasal discharge Green, and Post-nasal drip. Alleviating factors include Anti-histamines and Nasal sprays/steroids with Some relief. Patient denies Body aches, Chills, and Fever. Objective BP 103/70 | Pulse 98 | Temp 36.7 ?C (98.1 ?F) (Oral) | Resp 18 | Ht 1.626 m (5' 4") | Wt 49.9 kg (110 lb) | SpO2 99% | BMI 18.88 kg/m? Physical Exam: Vitals and nursing note reviewed. Constitutional: Appearance: Normal appearance. HENT: Head: Normocephalic. Right Ear: A middle ear effusion is present. Left Ear: A middle ear effusion is present. Nose: Nasal tenderness, mucosal edema, congestion and rhinorrhea present. Rhinorrhea is purulent. Right Turbinates: Enlarged. Left Turbinates: Enlarged. Eyes: Pupils: Pupils are equal, round, and reactive to light. Cardiovascular: Rate and Rhythm: Normal rate. Pulmonary: Effort: Pulmonary effort is normal. No respiratory distress. Skin: General: Skin is warm and dry. Neurological: General: No focal deficit present. Mental Status: She is alert and oriented to person, place, and time. Assessment & Plan Acute bacterial sinusitis Orders: amoxicillin-clavulanate (Augmentin) 500-125 MG tablet; Take 1 tablet by mouth in the morning and 1 tablet in the evening. Do all this for 5 days. pseudoephedrine-guaiFENesin ER (Mucinex D) 60-600 MG 12 hr tablet; Take 1 tablet by mouth every 12 hours if needed for congestion or cough for up to 5 days. Do not crush, chew, or split. Acute cough Orders: albuterol HFA 90 mcg/act inhaler; Inhale 2 puffs every 6 hours if needed for wheezing or shortness of breath (cough) for up to 10 days. benzonatate (Tessalon) 200 MG capsule; Take 1 capsule by mouth 3 times a day as needed for cough for up to 10 days. Do not crush or chew. Discussed with pt in detail regarding all results from today's visit, discharge instructions, discharge medications, return to urgent care precautions. Follow up with PCP/Specialist as discussed during visit. Strict ER precautions discussed. Pt verbalized understanding of all information and all questions were answered. Brisa Palomino NP [facility] HospitalMppaoxc3583-04-80 07:33:00 [facility] ([facility]) OB Postpart Progr Note REPORT#:[id number] REPORT STATUS: Signed DATE:03/23/23 TIME: 732 PATIENT: CUCA SANTIAGO UNIT #: [id number] ROOM/BED: [address] : 00 AGE: 22 SEX: F ATTEND: Aayush Reyna MD ADM AUTHOR: Rosie Marin, * ALL edits or amendments must be made on the electronic/computer document * Subjective Subjective Admission EGA: Weeks: 37 Days: 1 EGA at delivery (wks/days): 37 weeks (2) Status/day: post (day 2 ) Comments: Doing well without complaints, pain well controlled. Voiding freely. Tolerating reg diet, no n/v. ready for dc home. Objective Nursing Documentation Review Nursing data: The data set between the solid lines has been imported from nursing documentation. Any exceptions have been noted below under Provider comments. Feeding preference: Post hemorrhage risk score: LowRisk Provider comments on imported nursing data: [] General VS: Vital Signs Date Temp Pulse Resp B/P B/P Mean Pulse Ox FiO2 03/22-03/23 97.3-98.6 69-76 18-20 108-117/65-74 83.0-88.2 Last Documented: Result Date Time B/P 108/65 03/23 0024 Temp 97.6 03/23 0024 Pulse 69 03/23 0024 Resp 18 03/23 0024 B/P Mean 83.0 03/22 1802 Pulse Ox 98 03/22 0505 PATIENT WEIGHT: Weight (lb): 140 Weight (oz): Weight (kg): 63.600 Physical Exam Neuro: Exam: alert, oriented x3, normal speech Abdomen: soft, no abnormal tenderness, no guarding, no rebound tenderness Incision site: none Uterus: firm, involution appropriate, non-tender Fundus: firm, at the umbilicus, non-tender Lochia: normal Lacerations: Perineal laceration(s): left labial/periurethral Lower extremities: Edema: trace Diagnosis, Assessment Plan Diagnosis, Assessment Plan Assessment: nml progress Plan: routine care, discharge today at 0734 RPT #:[id number] END OF REPORT [id number] 10:31:00 [facility] ([facility]) OB Postpart Progr Note REPORT#:[id number] REPORT STATUS: Signed DATE:03/22/23 TIME: 1031 PATIENT: CUCA SANTIAGO UNIT #: [id number] ROOM/BED: [address] : 00 AGE: 22 SEX: F ATTEND: Aayush Reyna MD ADM AUTHOR: Elzbieta Luo MD * ALL edits or amendments must be made on the electronic/computer document * Subjective Subjective Admission EGA: Weeks: 37 Days: 1 EGA at delivery (wks/days): 37 weeks (2) Status/Day: post (d1) Patient reports: Patient reports: Yes no complaints, Yes normal lochia, Yes pain management effective, Yes tolerating po well, Yes voiding well, Yes voiding without pain, Yes tolerating ambulation, Yes flatus, Yes perineal pain, Yes difficulty nursing, No nausea, No vomiting, No excessive bleeding, No abdominal pain, No headache, No blurred vision Objective Nursing Documentation Review Nursing Data: The data set between the solid lines has been imported from nursing documentation. Any exceptions have been noted below under Provider comments. Feeding preference: Post hemorrhage risk score: LowRisk Provider comments on imported nursing data: [] General VS: Vital Signs: Date Time Temp Pulse Resp B/P B/P Pulse O2 O2 Flow FiO2 Mean Ox Delivery Rate 03/22 0744 98.2 75 20 109/70 03/22 0505 77.0 03/22 0505 98.0 84 20 111/60 98 03/21 2216 80.0 03/21 2216 77 107/59 03/21 2201 94.0 03/21 2201 87 124/75 03/21 2146 92.0 03/21 2146 93 118/74 03/21 2131 86.0 03/21 2131 120 117/73 03/21 2115 82.0 03/21 2115 92 114/61 03/21 2043 85.0 03/21 2043 99 116/65 03/21 2028 83.0 03/21 202 94 111/58 03/21 2014 80.0 03/21 2014 109 112/63 03/21 1958 81.0 03/21 1958 116 110/72 06/09 1928 82.0 06/09 1928 94 123/59 06/09 1913 65.0 06/09 1913 90 92/50 06/09 1906 97.7 06/09 1857 82.0 06/09 1857 93 117/64 06/09 1842 78.0 06/09 1842 75 110/56 06/09 1828 77.0 06/09 1828 74 109/58 06/09 1814 74.0 06/09 1814 73 106/56 06/09 1758 77.0 06/09 1758 74 103/58 06/09 1744 75.0 06/09 1744 74 105/58 06/09 1736 97.7 06/09 1729 68.0 06/09 1729 75 90/54 06/09 1714 70.0 06/09 1714 83 93/55 06/09 1657 71.0 06/09 1657 74 96/51 06/09 1644 73.0 06/09 1644 82 100/56 06/09 1628 88.0 06/09 1628 81 121/71 06/09 1612 85.0 06/09 1612 76 118/63 06/09 1558 79.0 06/09 1558 85 111/58 06/09 1544 77.0 06/09 1544 78 107/60 06/09 1527 78.0 06/09 1527 83 108/62 06/09 1512 81.0 06/09 1512 77 109/66 06/09 1511 98.1 06/09 1457 77.0 06/09 1457 75 110/60 06/09 1442 77.0 06/09 1442 81 101/59 06/09 1427 73.0 06/09 1427 71 98/53 06/09 1414 74.0 06/09 1414 74 101/54 06/09 1353 76.0 06/09 1353 80 108/60 06/09 1347 76.0 06/09 1347 71 108/57 06/09 1342 82.0 06/09 1342 97.6 70 116/61 06/09 1338 84.0 06/09 1338 70 115/68 06/09 1333 85.0 06/09 1333 78 118/66 06/09 1327 83.0 06/09 1327 76 114/67 06/09 1322 85.0 06/09 1322 80 122/66 03/21 1242 97.8 03/21 1117 97.7 PATIENT WEIGHT: Weight (lb): 140 Weight (oz): Weight (kg): 63.600 Physical Exam Cardiac: normal sinus rhythm, no clinically sig murmur Lungs: clear to auscultation Neuro: Exam: alert, oriented x3, normal speech Abdomen: soft, no abnormal tenderness, no guarding, no rebound tenderness Incision site: none Uterus: firm, involution appropriate, non-tender Fundus: firm, below the umbilicus, non-tender Lochia: normal Lacerations: Perineal laceration(s): left labial/periurethral Lower extremities: Edema: trace Result Results: no new labs, vital signs reviewed, vital signs stable Blood Loss Blood loss at delivery: Blood loss at delivery: <1K: no sx hypovol=no hem, no more than expected Cause of the bleeding: Management that was provided: QBL at delivery: EBL at delivery: 100 Diagnosis, Assessment Plan Diagnosis, Assessment Plan Assessment: nml progress, breast feeding difficulty (not very motivated to try) Plan: routine care, discharge tomorrow at 1059 RPT #:[id number] END OF REPORT [id number] 20:41:00 [facility] ([facility]) OB Delivery Note REPORT#:[id number] REPORT STATUS: Signed DATE:03/21/23 TIME: 2040 PATIENT: CUCA SANTIAGO UNIT #: [id number] ROOM/BED: [address] : 00 AGE: 22 SEX: F ATTEND: Aayush Reyna MD ADM AUTHOR: Elzbieta Luo MD * ALL edits or amendments must be made on the electronic/computer document * OB Delivery Nursing Documentation Review Nursing data: The data set between the solid lines has been imported from nursing documentation. Any exceptions have been noted below under Provider comments. _ ROM date: 03/21/23 ROM time: 0045 Membranes rupture method: SROM Amniotic fluid color: Clear Amniotic fluid amount: Steroids prior to arrival: Antibiotic prophylaxis given: Post hemorrhage risk score: Delivery date infant A: Delivery time infant A: Birthweight (gm) A: Weight (lb) A: Weight (oz) A: Gender A: Female 1 minute infant A: 5 minutes infant A: 10 minutes A: Cord pH obtained infant A: Vacuum time infant A: Vacuum # pulls infant A: Vacuum # popoffs A: QBL at delivery: __ Provider comments on imported nursing data: [] Pre-delivery GBS status: GBS status: negative evaluation at delivery: NRP certified personnel Admission EGA: Weeks: 37 Days: 1 EGA at delivery (wks/days): 37 weeks (2) Admission indication: PROM @ 37w1d Blood Loss/Details Blood loss at delivery: <1K: no sx hypovol=no hem, no more than expected EBL at delivery (ml's): 100 Baby A Information Baby A information Delivery date: 03/20/23 status: live born Wt of baby: not yet available Gender: female 1 minute: 8 5 minutes: 9 Presentation: vertex Anomalies: none noted ABG details Baby A Cord blood gases: not collected Nuchal cord Baby A Nuchal cord: no Vaginal Delivery Vaginal Delivery Vaginal delivery: Labor: induced Medications/Devices used: oxytocin, cytotec Vaginal delivery: spontaneous Amniotic fluid: clear Anesthesia type: epidural anesthesia Episiotomy: none Episiotomy repair: no Laceration repair: yes, 3-0 suture (vicryl) Placenta: spontaneous, intact, sent to pathology Post delivery meds used: oxytocin Count: correct Vaginal packing: No Mother's condition: mother stable 's condition: infant stable in room Lacerations: Perineal laceration(s): left labial/periurethral Extraction details OVD performed: no Shoulder dystocia present: no Note dictated: No Additional comments: As the head crowned and delivered, the perineum was protected with blue towel. The anterior shoulder delivered with gentle downward traction and posterior shoulder with gentle upward traction. A nuchal cord was not noted. The infant was then placed on maternal abdomen, bulb suctioned, and the cord clamped and cut after 60 seconds. Cord blood collection for [facility] to [facility] was performed. Placenta delivered spontaneously and intact. Hemostasis achieved with fundal massage and IV pitocin. A left periurethral/labial laceration was noted and repaired with 3.0 vicryl. Sponge, lap, and needle counts correct x 2. Good maternal-infant bonding noted. at 2045 RPT #:[id number] END OF REPORT [id number] 16:07:00 [facility] OB Intrapart Prog Note REPORT#:[id number] REPORT STATUS: Signed DATE:03/21/23 TIME: 1607 PATIENT: CUCA SANTIAGO UNIT #: [id number] ROOM/BED: [address] : 00 AGE: 22 SEX: F ATTEND: Aayush Reyna MD ADM AUTHOR: Elzbieta Luo MD * ALL edits or amendments must be made on the electronic/computer document * Subjective Subjective Admission EGA (wks/days): 37 weeks (1d) Patient reports: Patient reports: Yes leaking fluid, Yes contractions, Yes normal movement, Yes comfortable with epidural, No complaints, No abdominal pain, No vaginal bleeding , No headache, No blurred vision, No scotomata, No fever, No chills, No shortness of breath, No new complaints Objective Nursing Documentation Review Nursing data: The data set between the solid lines has been imported from nursing documentation. Any exceptions have been noted below under Provider comments. __ ROM date: 03/21/23 ROM time: 0045 __ Provider comments on imported nursing data: [] General VS: Last Documented: Result Date Time B/P Mean 79.0 03/21 1558 B/P 111/58 03/21 1558 Pulse 85 03/21 1558 Temp 98.1 03/21 1511 Resp 17 03/21 0419 Vital Signs Date Temp Pulse Resp B/P B/P Mean Pulse Ox FiO2 03/21 97.6-98.1 70-87 17 98-130/53-69 73.0-92.0 PATIENT WEIGHT: Weight (lb): 140 Weight (oz): Weight (kg): 63.600 Objective Cervical/ exam: Dilatation (cm): 4 Effacement (%): 80 station: - 3 Pelvis exam: Clinically adequate for this fetus: yes Uterine activity: Monitor: toco Frequency (description): regular Frequency (minutes): 3 Current oxytocin: Indication: induction Procedures: intrauterine press cath, vaginal exam FHR Evaluation Baby A: Baby A baseline: 115 bpm Baby A variability: moderate 6-25 bpm Baby A accelerations: 15 X 15 Baby A decelerations: none, early, variable Baby A FHR category: category 2 Result Findings/Data: Laboratory Tests: 03/21 03/21 0408 0306 Hematology WBC (6.5 - 12.3 K/mm3) 11.1 RBC (3.51 - 4.69 M/mm3) 3.94 Hgb (10.1 - 13.8 g/dL) 11.3 Hct (32.5 - 41.8 %) 33.8 MCV (84.6 - 96.6 fL) 85.8 MCH (27.3 - 33.9 pg) 28.7 MCHC (32.0 - 34.2 gm/dL) 33.4 RDW (12.2 - 16.3 %) 13.7 Plt Count (134 - 363 K/mm3) 289 MPV (9.2 - 12.7 fL) 10.3 Neut % (Auto) (57.9 - 77.3 %) 67.9 Lymph % (Auto) (14.5 - 29.7 %) 18.8 [place] % (Auto) (3.6 - 10.2 %) 10.5 H Eos % (Auto) (0.0 - 3.0 %) 1.1 Baso % (Auto) (0.1 - 0.9 %) 0.3 Neut # (Auto) (K/mm3) 7.5 Lymph # (Auto) (K/mm3) 2.1 [place] # (Auto) (K/mm3) 1.2 Eos # (Auto) (K/mm3) 0.12 Baso # (Auto) (K/mm3) 0.0 Other Body Source Membranes Rupture RUPTURED Serology Treponema pallidum Ab (NONREACTIVE) NONREACTIVE Hep Bs Antigen (NONREACTIVE) NONREACTIVE Hepatitis C Antibody (NONREACTIVE) NONREACTIVE Hep C Ab Signal/Cutoff (<0.80) 0.04 HIV 1 2 Antibody (NONREACTIVE) NONREACTIVE Diagnosis, Assessment Plan Assessment: abnormal FHR pattern (overall reassuring), latent phase labor, stable, doing well Plan: anticipate vag delivery, continue labor induction, intrauterine resuscitatn, epidural anesthesia, anesthesia consult at 1647 RPT #:[id number] END OF REPORT [id number] 08:48:00 [facility] ([facility]) OB Intrapart Prog Note REPORT#:[id number] REPORT STATUS: Signed DATE:03/21/23 TIME: 0848 PATIENT: CUCA SANTIAGO UNIT #: [id number] ROOM/BED: 016-A : 00 AGE: 22 SEX: F ATTEND: Aayush Reyna MD ADM AUTHOR: Elzbieta Luo MD * ALL edits or amendments must be made on the electronic/computer document * Subjective Subjective Admission EGA (wks/days): 37 weeks (1d) Patient reports: Patient reports: Yes leaking fluid, Yes contractions, Yes normal movement, Yes coping well w/o pain meds, No headache, No blurred vision, No scotomata, No fever, No chills, No shortness of breath Objective Nursing Documentation Review Nursing data: The data set between the solid lines has been imported from nursing documentation. Any exceptions have been noted below under Provider comments. __ ROM date: ROM time: __ Provider comments on imported nursing data: [] General VS: Last Documented: Result Date Time B/P Mean 92.0 03/21 419 B/P 130/69 03/21 419 Temp 97.9 06/09 0419 Pulse 86 03/21 0419 Resp 17 03/21 419 Vital Signs Date Temp Pulse Resp B/P B/P Mean Pulse Ox FiO2 03/21 97.9 80-86 17 126-130/69 89.0-92.0 PATIENT WEIGHT: Weight (lb): 140 Weight (oz): Weight (kg): 63.600 Objective Cervical/ exam: Dilatation (cm): 3 Effacement (%): 80 station: - 3 presentation: cephalic Pelvis exam: Clinically adequate for this fetus: yes Uterine activity: Monitor: toco Frequency (description): irregular Procedures: vaginal exam FHR Evaluation Baby A: Baby A baseline: 125 bpm Baby A variability: moderate 6-25 bpm Baby A accelerations: 15 X 15 Baby A decelerations: none Baby A FHR category: category 1 Result Findings/Data: Laboratory Tests: 03/21 03/21 0408 0306 Hematology WBC (6.5 - 12.3 K/mm3) 11.1 RBC (3.51 - 4.69 M/mm3) 3.94 Hgb (10.1 - 13.8 g/dL) 11.3 Hct (32.5 - 41.8 %) 33.8 MCV (84.6 - 96.6 fL) 85.8 MCH (27.3 - 33.9 pg) 28.7 MCHC (32.0 - 34.2 gm/dL) 33.4 RDW (12.2 - 16.3 %) 13.7 Plt Count (134 - 363 K/mm3) 289 MPV (9.2 - 12.7 fL) 10.3 Neut % (Auto) (57.9 - 77.3 %) 67.9 Lymph % (Auto) (14.5 - 29.7 %) 18.8 [place] % (Auto) (3.6 - 10.2 %) 10.5 H Eos % (Auto) (0.0 - 3.0 %) 1.1 Baso % (Auto) (0.1 - 0.9 %) 0.3 Neut # (Auto) (K/mm3) 7.5 Lymph # (Auto) (K/mm3) 2.1 [place] # (Auto) (K/mm3) 1.2 Eos # (Auto) (K/mm3) 0.12 Baso # (Auto) (K/mm3) 0.0 Other Body Source Membranes Rupture RUPTURED Serology Treponema pallidum Ab (NONREACTIVE) NONREACTIVE Hep Bs Antigen (NONREACTIVE) NONREACTIVE Hepatitis C Antibody (NONREACTIVE) NONREACTIVE Hep C Ab Signal/Cutoff (<0.80) 0.04 HIV 1 2 Antibody (NONREACTIVE) NONREACTIVE Diagnosis, Assessment Plan Assessment: normal FHR pattern, latent phase labor, stable, doing well Plan: anticipate vag delivery, begin oxytocin, epidural anesthesia (prn), anesthesia consult at 1651 RPT #:[id number] END OF REPORT [id number] 05:00:00 [facility] ([facility] OB Admission / H P REPORT#:[id number] REPORT STATUS: Signed DATE:03/21/23 TIME: 0500 PATIENT: CUCA SANTIAGO UNIT #: [id number] ROOM/BED: [address] : 00 AGE: 22 SEX: F ATTEND: Aayush Reyna MD ADM AUTHOR: Rosie Marin, DO * ALL edits or amendments must be made on the electronic/computer document * OB History Chief complaint: suspected ruptured memb HPI: 22yo at 37w1d presented to [facility] c/o LOF, found to be SROM. Feeling pressure, no pain. Endorses good FM. PNC with Dr. Jessica Valle FOB: Maikel. not involved at this point, he questions paternity. It's a girl Hgb/Hct/Plt: 12.8 / 37.4 / 310 Type/RH: A negative IDC: negative Rubella: equivocal HIV: negative HBsAg: negative RPR: negative Urine culture/analysis: neg Pap: NIL 08/22/22 GC/CT: neg / neg MS AFP: neg NIPT: neg F Carrier screen: Trio panel neg Zika/Dengue: 08/22/22 Anatomy u/s: MFM 16w normal anatomy. 11/15/22 19w normal anatomy. anterior placenta 12/13/22 23w 31% 01/07/23 26w EFW 31% 5/15/23 EFW 15%ile S/D ratio 3.68 1hr GTT: 99 11/18/2022 rhogam in the ED Rhogam: done 01/16/2023 3rd trimester Hgb/Hct/Plt: 10.8/31.7/313 3rd trimester RPR: NR 3rd trimester HIV: negative GBS: negative [employer]per: undecided feeding: hoping PN Class/Pre-registration: 12/19/2022 PP Depression: discussed 12/19/2022 PP Contraception: POPs Dietary counselin08/22/2022 Flu vaccine: recommended 09/18/2022 Tdap: done 01/30/2023 COVID vaccine: recommended 09/18/2022 Blood Products: accepts Cord Blood: undecided- thinking MDA Pain management: wants epidural Plan: n/a Pelvis clinically adequate. EFW < 5000g. history: : 1 Term: 0 : 0 Abortus: 0 Living children: 0 Current : Best EDC: 04/10/23 Admission EGA (weeks) 37 Admission EGA (days) 1 Past History Additional Medical History: Maternal bicuspid aortic valve Additional Surgical History: denies Alcohol Use Denies EtOH use Drug Use Denies recreational drugs Smoking status for patients 13 years old or older: Never Smoker Medications: Home Medications: PNV WITH FE FUMARATE/FA () 1 TAB PO DAILY CYCLOBENZAPRINE (FLEXERIL) 10 MG PO Q8H PRN PRN MUSCLE SPASMS/PAIN Allergies: Coded Allergies: No Known Allergies (12/18/22) Review of Systems All systems rev neg: except as marked Objective General VS: Last Documented: Result Date Time B/P Mean 92.0 03/21 0419 B/P 130/69 03/21 0419 Temp 97.9 03/21 0419 Pulse 86 03/21 0419 Resp 17 03/21 0419 Vital Signs Date Temp Pulse Resp B/P B/P Mean Pulse Ox FiO2 03/21 97.9 80-86 17 126-130/69 89.0-92.0 PATIENT WEIGHT: Weight (lb): 140 Weight (oz): Weight (kg): 63.600 Physical Exam Neuro: Exam: alert, oriented x3, normal speech Abdomen: gravid, soft, no abnormal tenderness, no guarding, no rebound tenderness Uterine activity: Monitor: toco Frequency (description): irregular Pelvic exam: Pelvis clinically adequate: yes Cervical/ exam: Dilatation (cm): ft/th/hi per RN on admission Membranes: Membranes: SROM ROM date: 03/21/23 ROM time: 0100 Amniotic fluid: clear Baby A: Baby A baseline: 125 bpm Baby A variability: moderate 6-25 bpm Baby A accelerations: 15 X 15 Baby A decelerations: none Baby A FHR category: category 1 Results Findings/Data: Laboratory Tests: 03/21 03/21 0408 0306 Hematology WBC (6.5 - 12.3 K/mm3) 11.1 RBC (3.51 - 4.69 M/mm3) 3.94 Hgb (10.1 - 13.8 g/dL) 11.3 Hct (32.5 - 41.8 %) 33.8 MCV (84.6 - 96.6 fL) 85.8 MCH (27.3 - 33.9 pg) 28.7 MCHC (32.0 - 34.2 gm/dL) 33.4 RDW (12.2 - 16.3 %) 13.7 Plt Count (134 - 363 K/mm3) 289 MPV (9.2 - 12.7 fL) 10.3 Neut % (Auto) (57.9 - 77.3 %) 67.9 Lymph % (Auto) (14.5 - 29.7 %) 18.8 [place] % (Auto) (3.6 - 10.2 %) 10.5 H Eos % (Auto) (0.0 - 3.0 %) 1.1 Baso % (Auto) (0.1 - 0.9 %) 0.3 Neut # (Auto) (K/mm3) 7.5 Lymph # (Auto) (K/mm3) 2.1 [place] # (Auto) (K/mm3) 1.2 Eos # (Auto) (K/mm3) 0.12 Baso # (Auto) (K/mm3) 0.0 Other Body Source Membranes Rupture RUPTURED Serology Treponema pallidum Ab (NONREACTIVE) NONREACTIVE Hep Bs Antigen (NONREACTIVE) NONREACTIVE Hepatitis C Antibody (NONREACTIVE) NONREACTIVE Hep C Ab Signal/Cutoff (<0.80) 0.04 HIV 1 2 Antibody (NONREACTIVE) NONREACTIVE Diagnosis, Assessment Plan Diagnosis, Assessment Plan Free Text A P: 22yo at 37w1d admitted for SROM 1. Labor -s/p SROM clr fluid at 0100. Irregular/nonpainful ctx, cytotec PO 50mcg given at 0445. Plan for pitocin 2x2s -FHTs category 1 -GBS negative -Epidural prn for pain control -Rh neg 2. Suspected placenta insufficiency -Pt with h/o elevated S/D ratio at 26wks, all testing since then wnl most recent S/D ratio wnl. F/B MFM Dr. Maloney -EFW at 34wks 15% -Planned IOL at 38wks 3. Maternal biscupid aortic valve -Nml maternal echo with EFW 55-60% -Nml echo at 0714 RPT #:[id number] END OF REPORT [id number] 22:09:00 [facility] ([facility]) [facility] Evaluation Note REPORT#:[id number] REPORT STATUS: Signed DATE:03/02/23 TIME: 2208 PATIENT: CUCA SANTIAGO UNIT #: [id number] ROOM/BED: : 00 AGE: 22 SEX: F ATTEND: Aayush Reyna MD ADM DT: AUTHOR: Kayli Merida MD * ALL edits or amendments must be made on the electronic/computer document * [facility] History Chief complaint: decreased movement HPI: 22 yo at 34w2d presents for decreased movements. Patient notes that she only palpated 7 movements in past 2 hours. no bleeding or leaking fuid. No ctx. Reports baby "is a little small" but not IUGR, has increased placental resistance. She herself has bicuspid aortic valve and a murmur associated with this. Normal echo this . Prenata care with Dr Kareem Valle PMH: bicuspid aortic valve PSH: none soc hx: no дмитрий Allergies: nkda meds: PNV Family history Relation not specified for: Family History: Diabetes FH: polycystic kidney Allergies Coded Allergies: No Known Allergies (12/18/22) Objective General VS: Last Documented: Result Date Time B/P Mean 79.0 03/02 2143 B/P 115/56 03/02 2143 Temp 98.0 03/02 2143 Pulse 82 03/02 214 Resp 17 03/02 2143 Vital Signs Date Temp Pulse Resp B/P B/P Mean Pulse Ox FiO2 03/02 98.0 82 17 115/56 79.0 PATIENT WEIGHT: Weight (lb): Weight (oz): Weight (kg): Physical Exam HEENT: normocephalic w/o injury Cardiac: regular rate and rhythm Lungs: unlabored breathing Abdomen: gravid, soft, no abnormal tenderness Uterine activity: Monitor: palpation, irritability with rare contractions FHR evaluation: Baseline: 140 bpm (Cat 1) Variability: moderate 6-25 bpm Accelerations: 15 X 15 Decelerations: none FHR category: category 1 Notes: reactive and reassuring BPP 10/10. MVP 4.69, JORDON 10 Diagnosis, Assessment Plan Diagnosis, Assessment Plan Free Text A P: 22 yo at 34w3d with decreased movement -BPP 10/10 -NST reactive and reassuring. Discussed option of weekly NSt if continued perception of decreased FM F/u with pcp at 2216 RPT #:[id number] END OF REPORT [id number] 01:16:[id number] [facility] [address] [place] [address] PATIENT NAME: CUCA SANTIAGO ADMIT DATE: 03/01/23 ACCOUNT NO: [id number] ROOM NO: AGE: 22 SEX: F ADMITTING PHYSICIAN: ATTENDING PHYSICIAN: Aayush Reyna MD ADMISSION DATE: 03/01/2023 22:45:00 CHIEF COMPLAINT: Swollen feet and elevated blood pressures at home. HISTORY OF PRESENT ILLNESS: Cuca is a 22-year-old white female, G2, P0-0-1-0, who presented to the hospital complaining of legs and feet swollen all day. She states that she walked around a lot today, and her feet swelled up and caused her ankle bracelet to cut off her circulation. She put her feet up, elevated it, the swelling went down. She ate dinner, then walked around, and feet swelled up again with her ankle bracelet that was cutting off her circulation. She checked her blood pressure at home, 130/72, so she came in. She denies any headaches, vision changes, right upper quadrant pain. No nausea or vomiting. Baby is moving well. She denies contractions. Overall, she is doing well. PAST MEDICAL HISTORY: Bicuspid valve prolapse. She said that her echocardiogram is normal. PAST SURGICAL HISTORY: Negative. MEDICATIONS: Promethazine. ALLERGIES: NKDA. OBSTETRICAL HISTORY: 1 miscarriage. FAMILY HISTORY: Noncontributory. SOCIAL HISTORY: No alcohol, tobacco, or drugs. REVIEW OF SYSTEMS: HEENT: No headaches, vision changes, rhinorrhea, epistaxis, tinnitus. PULMONARY: No cough, chest pain, shortness of breath, orthopnea, or palpitations. GENITOURINARY: No dysuria or frequency. PSYCHIATRIC: No depression or vero. PHYSICAL EXAMINATION: GENERAL: In no apparent distress, alert, oriented. VITAL SIGNS: Blood pressure 107/56, pulse 81, respirations 18, afebrile. NECK: No JVD, no thyromegaly. LUNGS: Clear bilaterally. HEART: Regular rhythm. Normal S1 and S2. ABDOMEN: Soft, nontender, nondistended, gravid. No rebound, no guarding. PATIENT NAME: CUCA SANTIAGO EXTREMITIES: No clubbing, cyanosis, or edema noted. Calves are nontender to palpation. FHTs are 130s and reactive with good long-term variability. PELVIC: The cervix is deferred. LABORATORY DATA: WBC is 12.7, hemoglobin is 9.2, hematocrit 37.2, platelets 259,000. Sodium 133, potassium 3.7, creatinine 0.5, uric acid 3.7, AST 17, ALT 19, LDH 146, albumin 2.6. Protein creatinine ratio of 349.9. ASSESSMENT: Cuca is a 22-year-old 2, para 0 at 34 weeks 2 days with probably normal swelling, no evidence for preeclampsia. PLAN: After discussion with the patient, we will discharge her home. She will follow up with her doctor this week. labor warnings were given, she verbalized understanding. Discussed preeclamptic warnings in great detail, and she is to come back if she has any headaches, vision changes, right upper quadrant pain, nausea, vomiting or if she checked her blood pressure and is elevated, she is to come back. All questions were answered, and both mom and baby are being discharged home in stable condition. Dictated By: Mukesh Lezama MD Date Dictated: 03/02/2023 01:16:06 Date Transcribed: 03/02/2023 02:27:25 DCB/RAG Receipt ID: [id number] Authenticated by Mukesh Lezama MD On 07/03/2023 10:44:12 AM at 1044 PATIENT NAME: CUCA SANTIAGO 22:39:00 [facility] ([facility]) EMERGENCY PROVIDER REPORT REPORT#:[id number] REPORT STATUS: Signed DATE:02/05/23 TIME: 2238 PATIENT: CUCA SANTIAGO UNIT #: [id number] ROOM/BED: AGE: 22 SEX: F PCP PHYS: Aayush Reyna MD SERVICE AUTHOR: Hyacinth Mix MD * ALL edits or amendments must be made on the electronic/computer document * [facility] History Chief complaint: suspected ruptured memb HPI: 22 yo with IUP at 30.6. ABEALRDO 04/10/23. PNC: rh neg (s/p rhogam at 28 wks). Pt presents to [facility] with complaints of large gush of fluid around 1915. She was sitting on the porch at which time she noted a large pool of fluid underneath her, reports it happened twice which prompted her to come to the [facility]. She denies VB or pelvic pain. +FM Past medical history: bicuspid aortic valve, heart murmur Past surgical history: denies PSH Social history: employed, no alcohol use, no tobacco use, no drug use Family history Relation not specified for: Family History: Diabetes FH: polycystic kidney Medications: Home Medications: Medication Dose/Rte/Freq Days Qty Entered Last Max Daily Dose Reviewed CYCLOBENZAPRINE 10 MG PO 15 12/18/22 (FLEXERIL) Q8H PRN PRN MUSCLE 2127 Strength: 10 MG TAB SPASMS/PAIN Allergies Coded Allergies: No Known Allergies (12/18/22) Review of Systems All systems rev neg: except as marked Objective General VS: Last Documented: Result Date Time B/P Mean 84.0 02/05 2109 B/P 125/58 02/05 2109 Pulse 90 02/05 2109 Vital Signs Date Temp Pulse Resp B/P B/P Mean Pulse Ox FiO2 02/05 90 125/58 84.0 PATIENT WEIGHT: Weight (lb): Weight (oz): Weight (kg): Physical Exam HEENT: normocephalic w/o injury Cardiac: regular rate and rhythm Lungs: clear to auscultation Neuro: Exam: alert, oriented x3, normal speech Abdomen: gravid, soft, no abnormal tenderness, no guarding, no rebound tenderness, normoactive bowel sounds Uterine activity: Monitor: toco Frequency (description): none Cervical/ exam: Dilatation (cm): 0 - closed (on SSE) FHR evaluation: Baseline: 140 bpm Variability: moderate 6-25 bpm Accelerations: 10 X 10 FHR category: category 1 Lower extremities: Edema: none Additional comments: SSE performed at the bedside no evidence of pooling or LOF with valsalva Results Findings/Data: Laboratory Tests: 02/05 2135 Other Body Source Membranes Rupture NON-RUPTURED Recent Impressions: ULTRASOUND - US LTD 02/05 2312 Report Impression - Status: SIGNED Entered: 02/06/20238 IMPRESSION: 1. Viable gestation in vertex presentation, heart rate 156 bpm. 2. No acute abnormality demonstrated. Impression By: Yonatan Casper MD FINDINGS: EGA: 30 weeks 6 days Gestation: [place] Presentation: Vertex heart rate: 156 bpm Amniotic fluid: 12.8 cm Placenta: Anterior, grade 2. No previa or retroplacental fluid. Cervical length: 3.4 cm, no gross endocervical fluid. Right ovary not visualized. Left ovary measures 2.7 x 0.9 x 2.1 cm, normal appearance. IMPRESSION: 1. Viable gestation in vertex presentation, heart rate 156 bpm. 2. No acute abnormality demonstrated. at 0037 Diagnosis, Assessment Plan Diagnosis, Assessment Plan Free Text A P: 22 yo with IUP at 30.6. ABELARDO 04/10/23. PNC: rh neg (s/p rhogam at 28 wks), PPROM ruled out - discharge home with strict PTL precautions - ROM plus negative and ultrasound noted normal JORDON therefore no evidence of PPROM - findings discussed with pt and mom who express understanding at 0849 RPT #:[id number] END OF REPORT [id number] 21:29:00 [facility] ([facility]) [facility] Evaluation Note REPORT#:[id number] REPORT STATUS: Signed DATE:12/18/22 TIME: 2128 PATIENT: CUCA SANTIAGO UNIT #: [id number] ROOM/BED: : 00 AGE: 22 SEX: F ATTEND: Aayush Reyna MD ADM AUTHOR: Rhonda Matthew MD * ALL edits or amendments must be made on the electronic/computer document * [facility] History Nursing Documentation Review Nursing data: The data set between the solid lines has been imported from nursing documentation. Any exceptions have been noted below under Provider comments. Current data Steroids prior to arrival: ROM date: ROM time: EDC date: 04/10/23 Gestational age (labor triage): Post hemorrhage risk score: Prior history : 2 Para: 0 Term: : Abortions spontaneous: Abortions induced: Living children: Ectopic: Stillbirths: Live births: deaths: Number of previous C/S: Reported maternal labs/data Blood type: Rh type: Rubella: Hepatitis B: HIV exposure test: VDRL: Group B beta strep: Rho(D) immune globulin this preg: Monitor mode - UA: Feeding preference: Provider comments on imported nursing data: [] Chief complaint: Back pain HPI: 22-year-old G2, P0 female with IUP at 23 6/7 weeks. ABELARDO: 04/10/23 She presents to [facility] with complaints of a 1-day history of intermittent low back pain that has persisted and worsened over the past few hours. She rates her pain 5/10 and states it is worse with ambulation Pain described as a dull ache that is intermittently sharp with movement and radiates from her low back into her hips. On examination, she has bilateral paraspinal muscle spasms of the lumbar spine, R>L. She denies uterine cramping / contractions. She denies pelvic / abdominal pain. No n/v/d/c. No abnormal / foul discharge. She denies fever/chills. The patient denies headache, blurred vision, epigastric pain, CP or dyspnea. She denies LOF / VB. FM +. NST: FHT 140. AGA [place]: No contractions LABS: UA negative Flu / Covid-19 Screen: She denies: 1. Temp > 100.4 degrees F 2. Chills 3. Cough 4. Congestion / Runny nose 5. Sore throat 6. Shortness of breath / difficulty breathing 7. Nausea vomiting 8. Diarrhea 9. Muscle / Body aches 10. Fatigue Care: Abraham Henry MD course reportedly uncomplicated To her knowledge, all labs and US WNL Records are not available for review history: : 2 Term: 0 : 0 Abortus: 1 Living children: 0 Current : EDC: 04/10/23 EGA (weeks/days): 23 6/7 weeks Conditions of : Back spasm Procedures: non stress test Past medical history: denies PMH Past surgical history: denies PSH Social history: no alcohol use, no tobacco use, no drug use Family history Family history was reviewed; no changes noted. Medications: Home Medications: Medication Dose/Rte/Freq Days Qty Entered Last Max Daily Dose Reviewed CYCLOBENZAPRINE 10 MG PO 15 12/18/22 (FLEXERIL) Q8H PRN PRN MUSCLE 2128 Strength: 10 MG TAB SPASMS/PAIN Allergies Coded Allergies: No Known Allergies (12/18/22) Review of Systems All systems rev neg: except as marked Objective General VS: Last Documented: Result Date Time B/P Mean 75.0 12/18 1908 B/P 106/54 12/18 1908 Pulse 80 12/18 1908 Resp 18 12/18 190 Temp 98.2 12/18 1831 PATIENT WEIGHT: Weight (lb): 126 Weight (oz): 5.2 Weight (kg): 57.300 Physical Exam HEENT: normocephalic w/o injury Cardiac: regular rate and rhythm Lungs: unlabored breathing Breasts: deferred Neuro: Exam: alert, oriented x3, normal speech, CNII-XII grossly intact Abdomen: gravid, soft, no abnormal tenderness, no guarding Musculoskeletal: painless range of motion Genitourinary: no flank pain Uterine activity: Monitor: toco Frequency (description): none Pelvic exam: Pelvis clinically adequate: yes, inlet appears appropriate, pubic bone config appropr, no midpelvic contraction Vulvar lesions: none, no evidence herpetic les, no evidence of other STD Vagina: normal, non-septated, w/o apparent lesions Exam: soft, non-tender, approp size for gest age Cervical/ exam: Dilatation (cm): 0 - closed Effacement (%): 0 station: - 4 FHR evaluation: Baseline: 140 bpm Variability: moderate 6-25 bpm Accelerations: 10 X 10 Decelerations: none FHR category: category 1 Membranes: Membranes: Intact Lower extremities: Edema: none Nevin's sign: negative Calf tenderness: negative Treatment Prophylaxis Treatment Prophylaxis Other: Flexeril Diagnosis, Assessment Plan Diagnosis, Assessment Plan Problem List/A P: 1. Low back pain during in second trimester 2. Muscle spasm of back 3. 23 weeks gestation of Free Text A P: Responded well to Flexeril PO and Tylenol Encouraged to use moist heat, massage and stretching Assessment/Impression: reassuring status, reactive NST, no evidence of labor, Muscle spasm Plan: discharge home, kick counts, belt Plan discussed with: patient, family, nurse at 0106 RPT #:[id number] END OF REPORT [id number] 22:[id number] [place] [id number] PATIENT NAME: CUCA SANTIAGO ADMIT DATE: 12/13/22 ACCOUNT NO: [id number] ROOM NO: AGE: 22 SEX: F ADMITTING PHYSICIAN: ATTENDING PHYSICIAN: Ekaterina Maloney MD *[facility]* [address] [place] [address] Transthoracic Echocardiogram Patient: Cuca Santiago Study Date: 12/13/2022 BP: 112 / 64 Location: [facility] URN: [id number] : 2000 Age: 22 Height: 64 in / 162.6 cm Gender: F Weight: 122.7 lb / 55.8 kg BMI/BSA: 21.1 kg/m 2 / 1.59 m 2 *Ordering Physician: * Ekaterina Maloney *Interpreting Physician: * Sada Jones MD *Social Media Manager: * ALDO Hernandes Indications: BICUSPID AORTIC VALVE. Study data: Transthoracic echocardiogram. Complete 2D, complete spectral Doppler, and color Doppler. Location: [facility] area. Findings Left ventricle: The cavity size is normal. Wall thickness is normal. Systolic function is normal. The estimated ejection fraction is 55-60%. Wall motion is normal; there are no regional wall motion abnormalities. Right ventricle: The cavity size is normal. Systolic function is normal. Left atrium: The atrium is normal in size. Right atrium: The atrium is normal in size. Aorta: Aortic root: The aortic root is normal in size. Aortic valve: The valve is bicuspid. There is trivial regurgitation. Mitral valve: The valve is structurally normal. PATIENT NAME: CUCA SANTIAGO Tricuspid valve: The valve is structurally normal. There is trivial regurgitation. Unable to estimate pulmonary artery systolic pressure due to incomplete tricuspid regurgitation envelope. Pulmonic valve: Not well visualized. There is trivial regurgitation. Pericardium: A small pericardial effusion is identified near the right ventricle free wall apex. Systemic veins: Inferior vena cava: The vessel is normal in size. Estimated right atrial pressure is 5-10 mmHg. Measurements Left ventricle Value Ref ABELARDO, LAX 4.2 cm 3.8 - 5.2 ESD, LAX 2.6 cm 2.2 - 3.5 FS, LAX 38 % 27 - 45 PW, ED 0.9 cm 0.6 - 0.9 EF 69 % 54 - 74 Ventricular septum Value Ref IVS, ED 0.9 cm 0.6 - 0.9 Left atrium Value Ref AP dim, ES 2.96 cm 2.70 - 3.80 Aortic root Value Ref Root diam 2.4 cm <3.2 Prepared and electronically signed by Sada oJnes MD 12/13/2022 22:19 at [id number] PATIENT NAME: CUCA SANTIAGO
[2025-05-21 04:19] LABS: Absolute Lymphocytes (CBC) 2.7 K/uL (0.7-4.9); Hematocrit 37.5 % (36.0-45.0); Hemoglobin 12.8 g/dL (12.0-15.0); MCH 28.5 pg (27.0-35.0); MCHC 34.3 g/dL (32.0-36.0); MCV 83.2 fL (80-100); MPV 7.3 fL (7.6-11.3); Nucleated RBC Absolute Count 0.0 (0-0); Nucleated Red Blood Cells % 0.0 % (0-0); RBC Red Blood Cell Count 4.50 M/uL (3.86-4.86); White Blood Count 10.60 thou/uL (4.3-10.9)
[2025-05-21 04:28] LABS: ALT/SGPT 16.0 U/L (13-56); AST/SGOT 12.0 U/L (15-37); Albumin 3.9 g/dL (3.4-5.0); Albumin/Globulin Ratio 1.2 (1.1-1.8); Alkaline Phosphatase 55.0 U/L (45-117); Anion Gap 9.3 mEq/L (5.0-15.0); BUN Blood Urea Nitrogen 11.0 mg/dL (7-18); Globulin 3.3 g/dL (2.3-3.5); Glucose Level 104.0 mg/dL (74-106); Lipase 73.0 U/L (13-75); Potassium 3.3 mEq/L (3.5-5.1)
[2025-05-21] MEDS ORDERED: ONDANSETRON 4 MG/2 ML VIAL ONE (04:42)
[2025-05-21] MEDS ORDERED: KETOROLAC 30 MG/ML INJ ONE (04:42)
[2025-05-21] MEDS ORDERED: MORPHINE 4 MG/ML SYR ONE (04:43)
--- NOTE | 2025-05-21 06:05 | RAD REPORT ---
PROCEDURE: CT Abdomen and Pelvis Without Intravenous Contrast CLINICAL INDICATION: The patient is 24 years old and is Female; Right hip and pelvic injury NO CONTRAST Bed Name: 6 TECHNIQUE: Axial computed tomography images of the abdomen and pelvis without intravenous contrast. Sagittal a nd coronal reformatted images were created and reviewed. This CT exam was performed using one or more of the following dose reduction techniques: automated exposure control, adjustment of the mA a nd/or kV according to patient size, and/or use of iterative reconstruction technique. COMPARISON: 11/30/2021 CT abdomen pelvis FINDINGS: LUNG BASES: Unremarkable No mass. No consolidation. ABDOMEN: LIVER: Unremarkable GALLBLADDER AND BILE DUCTS: Unremarkable No calcified stones. No ductal dilation. PANCREAS: Unremarkable No ductal dilation. SPLEEN: Unremarkable No splenomegaly. ADRENALS: Unremarkable No mass. KIDNEYS AND URETERS: Unremarkable No obstructing stones. No hydronephrosis. STOMACH AND BOWEL: Fecalization contents of multiple loops of small bowel. Nonspecific, but suggest s decreased motility. No obstruction. No mucosal thickening. PELVIS: APPENDIX: No findings to suggest acute appendicitis. BLADDER: Unremarkable No stones. REPRODUCTIVE: Unremarkable as visualized. ABDOMEN and PELVIS: INTRAPERITONEAL SPACE: Unremarkable No free air. No significant fluid collection. BONES/JOINTS: No acute fracture. No dislocation. SOFT TISSUES: Unremarkable VASCULATURE: Unremarkable No abdominal aortic aneurysm. LYMPH NODES: Unremarkable No enlarged lymph nodes. IMPRESSION: 1. Allowing for lack of intravenous contrast, no acute abnormality of the abdomen or pelvis. 2. Fecalization contents of multiple loops of small bowel. Nonspecific, but suggests decreased josseu lity. Electronically signed by: Florencio Fiore MD 05/21/2025 06:00 AM CDT Due to temporary technical issues with the [employer]ACS[employer] reporting system, reports are being risa d by the in-house radiologist without review as a courtesy to ensure prompt reporting the interpreting radiologist is fully responsible for the content of the report. Transcribed Date/Time: 05/21/2025 6:05 AM
--- NOTE | 2025-05-21 06:07 | RAD REPORT ---
PROCEDURE: XR Right Femur, 2 Views CLINICAL INDICATION: The patient is 24 years old and is Female; Right femur X ray Bed Name: 6 TECHNIQUE: Frontal and lateral views of the right femur. COMPARISON: No relevant prior studies available. FINDINGS: BONES/JOINTS: No acute fracture. No suspicious lytic or blastic bone lesions. No subluxation or dis location. SOFT TISSUES: Unremarkable IMPRESSION: No acute findings in the right femur. Electronically signed by: Florencio Fiore MD 05/21/2025 06:00 AM CDT RP Due to temporary technical issues with the PACS/[employer] reporting system, reports are being risa d by the in-house radiologist without review as a courtesy to ensure prompt reporting the interpreting radiologist is fully responsible for the content of the report. Transcribed Date/Time: 05/21/2025 6:06 AM
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
[2025-05-21 06:41] VITALS: TEMP 97.8
[2025-05-21 06:43] VITALS: O2SAT 100
[2025-05-21 06:44] VITALS: BP 126/81
== END 2025-05-21 06:37 | disposition home or self-care (01) ==
LOC: ER 03:39
DX: S73.101A Unspecified sprain of right hip, initial encounter (principal); V59.59XA Passenger in pick-up truck or van injured in collision with other motor vehicles in traffic accident, initial encounter
CPT/HCPCS: 85025; 36415; 84703; 83690; 80053; 74176; 73552; 96375; 96374; 99284; J2405